=== PATIENT | male | born 1935 | race Caucasian/White ===

== ENCOUNTER → 2016-06-17 | Outpatient (REF) | payer MEDICARE ==
[2016-06-17 12:16] LABS: BASO % 0.5 % (0.0-1.0); EOS # 0.3 K/mm3 (0.0-0.50); EOS % 3.7 % (0.0-3.0); LARGE UNSTAINED CELL # 0.1 K/mm3 (0.0-0.4); LARGE UNSTAINED CELL % 1.1 % (0.0-4.0); LYMPH # 1.2 K/mm3 (1.5-4.5); LYMPH % 14.5 % (24.0-44.0); MEAN CORPUSCULAR HEMOGLOBIN 32.2 pg (27.0-33.0); MEAN CORPUSCULAR HGB CONC 33.4 g/dl (32.0-36.5); MEAN CORPUSCULAR VOLUME 96.3 fl (80.0-96.0); MONO # 0.6 K/mm3 (0.0-0.8); MONO % 7.3 % (0.0-5.0); NEUTROPHILS # 5.6 K/mm3 (1.8-7.7); NEUTROPHILS % 72.9 % (36.0-66.0); PLATELET COUNT, AUTOMATED 280 k/mm3 (150-450); RED CELL DISTRIBUTION WIDTH 12.1 % (11.5-14.5); WHITE BLOOD COUNT 7.7 K/mm3 (4.0-10.0)
[2016-06-17 12:33] LABS: ALBUMIN 3.6 GM/DL (3.2-5.2); ALBUMIN/GLOBULIN RATIO 1.2 (1.00-1.93); BILIRUBIN,TOTAL 0.3 MG/DL (0.2-1.0); CALCIUM LEVEL 9.5 MG/DL (8.8-10.2); CARBAMAZEPINE (TEGRETOL) LEVEL 9.5 UG/ML (4.0-10.0); CREATININE FOR GFR 3.32 MG/DL (0.70-1.30); GLOMERULAR FILTRATION RATE 19.3 (>42); PERCENT SATURATION 45.9 % (19.7-37.4); POTASSIUM SERUM 4.3 MEQ/L (3.5-5.1); TOTAL PROTEIN 6.6 GM/DL (6.4-8.2)
== END ==
LOC: M SFHCPLAZ 07:55
PROVIDERS: ATTEND Family Medicine
DX: G40.909 Epilepsy, unspecified, not intractable, without status epilepticus (principal); I12.9 Hypertensive chronic kidney disease with stage 1 through stage 4 chronic kidney disease, or unspecified chronic kidney disease; N40.1 Benign prostatic hyperplasia with lower urinary tract symptoms; N18.4 Chronic kidney disease, stage 4 (severe); Z79.899 Other long term (current) drug therapy
CPT/HCPCS: 36415; 80053; 80156; 82728; 83036; 83550; 83970; 85025; G0103

== ENCOUNTER → 2016-10-28 | Outpatient (CLI) | payer MEDICARE ==
--- NOTE | 2016-10-28 14:03 | REP ---
MRI RIGHT SHOULDER WITHOUT CONTRAST: HISTORY: Right shoulder pain. No comparison radiographs. TECHNIQUE: Axial, oblique coronal, and oblique sagittal imaging planes utilized. T1 and T2-weighted scans were obtained in the usual fashion. MRI FINDINGS: There is advanced glenohumeral and mild to moderate acromioclavicular joint osteoarthritis. Well established spurring is seen along the margins of the humeral head inferiorly and to a lesser extent laterally and along the articular margins of the glenoid. There is complete articular cartilage loss across the glenoid and a large area of the humeral head. Some subcortical sclerosis is seen. There is a large glenohumeral joint effusion. There is no evidence of supraspinatus cuff tear. The biceps tendon appears intact. The biceps tendon sheath is quite distended with septated fluid. On axial T2-weighted scans, there is granular material in the posterior aspect of the glenohumeral joint fluid. There is degeneration in the superior cartilaginous labrum. The anterior and posterior labral cartilages are deficient particularly anterior. The infraspinatus and subscapularis tendons appear intact. 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 This contains granular material which may be tiny osteocartilaginous loose bodies. There is significant articular cartilage loss. Degeneration of the anterior and superior labral cartilage. No definite rotator cuff tear. The biceps tendon sheath is distended with joint fluid. Signed by Cole Trevino MD 10/28/2016 04:32 P
== END ==
LOC: M RAD 12:16
PROVIDERS: ATTEND Physician Assistant Medical
DX: M19.011 Primary osteoarthritis, right shoulder (principal); M25.411 Effusion, right shoulder

== ENCOUNTER → 2016-11-01 | Outpatient (REF) | payer MEDICARE ==
[2016-11-01 13:09] LABS: BASO # 0.1 K/mm3 (0.0-0.2); BASO % 0.7 % (0.0-1.0); EOS # 0.2 K/mm3 (0.0-0.50); EOS % 2.4 % (0.0-3.0); LARGE UNSTAINED CELL # 0.1 K/mm3 (0.0-0.4); LYMPH # 1.4 K/mm3 (1.5-4.5); LYMPH % 16.4 % (24.0-44.0); MEAN CORPUSCULAR HEMOGLOBIN 32.4 pg (27.0-33.0); MEAN CORPUSCULAR HGB CONC 32.8 g/dl (32.0-36.5); MONO # 0.5 K/mm3 (0.0-0.8); MONO % 6.6 % (0.0-5.0); NEUTROPHILS # 5.7 K/mm3 (1.8-7.7); NEUTROPHILS % 72.9 % (36.0-66.0); PLATELET COUNT, AUTOMATED 280 k/mm3 (150-450); RED CELL DISTRIBUTION WIDTH 12.8 % (11.5-14.5); WHITE BLOOD COUNT 7.8 K/mm3 (4.0-10.0)
[2016-11-01 13:37] LABS: ALBUMIN 3.5 GM/DL (3.2-5.2); ALBUMIN/GLOBULIN RATIO 1.21 (1.00-1.93); BILIRUBIN,TOTAL 0.3 MG/DL (0.2-1.0); CARBAMAZEPINE (TEGRETOL) LEVEL 9.3 UG/ML (4.0-10.0); CREATININE FOR GFR 3.1 MG/DL (0.70-1.30); FREE T4 0.98 NG/DL (0.76-1.46); GLOMERULAR FILTRATION RATE 20.8 (>42); MAGNESIUM LEVEL 2.6 MG/DL (1.8-2.4); POTASSIUM SERUM 4.3 MEQ/L (3.5-5.1); TOTAL PROTEIN 6.4 GM/DL (6.4-8.2)
== END ==
LOC: M SFHCPLAZ 07:46
PROVIDERS: ATTEND Family Medicine
DX: G40.909 Epilepsy, unspecified, not intractable, without status epilepticus (principal); E78.5 Hyperlipidemia, unspecified; N18.4 Chronic kidney disease, stage 4 (severe); E03.9 Hypothyroidism, unspecified; E55.9 Vitamin D deficiency, unspecified

== ENCOUNTER → 2017-02-15 | Outpatient (REF) | payer MEDICARE ==
[2017-02-15 11:04] LABS: BASO % 0.5 % (0.0-1.0); EOS # 0.2 10^3/uL (0.0-0.50); IMMATURE GRANULOCYTE # 0.1 10^3/uL (0-0); IMMATURE GRANULOCYTE % 0.7 % (0-0); LYMPH # 1.3 10^3/uL (1.5-4.5); LYMPH % 14.8 % (24.0-44.0); MEAN CORPUSCULAR HEMOGLOBIN 32.6 pg (27.0-33.0); MEAN CORPUSCULAR HGB CONC 33.9 g/dl (32.0-36.5); MEAN CORPUSCULAR VOLUME 96.2 fl (80.0-96.0); MONO # 0.8 10^3/uL (0.0-0.8); MONO % 9.5 % (0.0-5.0); NEUTROPHILS # 6.3 10^3/uL (1.8-7.7); NEUTROPHILS % 72.5 % (36.0-66.0); PLATELET COUNT, AUTOMATED 277 10^3/uL (150-450); WHITE BLOOD COUNT 8.7 10^3/uL (4.0-10.0)
[2017-02-15 11:21] LABS: ALBUMIN 3.6 GM/DL (3.2-5.2); ALKALINE PHOSPHATASE 62 U/L (45-117); ALT/SGPT 19 U/L (12-78); ANION GAP 10 MEQ/L (8-16); AST/SGOT 12 U/L (7-37); BILIRUBIN,TOTAL 0.4 MG/DL (0.2-1.0); BLOOD UREA NITROGEN 46 MG/DL (7-18); CARBAMAZEPINE (TEGRETOL) LEVEL 8.8 UG/ML (4.0-10.0); CARBON DIOXIDE LEVEL 27 MEQ/L (21-32); CHLORIDE LEVEL 102 MEQ/L (98-107); CREATININE FOR GFR 3.03 MG/DL (0.70-1.30); GLOMERULAR FILTRATION RATE 21.4 (>42); GLUCOSE, FASTING 112 MG/DL (83-110); POTASSIUM SERUM 3.9 MEQ/L (3.5-5.1); PSA SCREENING 2.28 NG/ML (< 4.0); SODIUM LEVEL 139 MEQ/L (136-145); TOTAL PROTEIN 6.6 GM/DL (6.4-8.2)
[2017-02-15 11:25] LABS: ESTIMATED AVERAGE GLUCOSE 111 MG/DL (60-110)
[2017-02-16 12:43] LABS: ALBUMIN % 58.3 % (55.8-66.1); GAMMA GLOBULIN % 13.1 % (11.1-18.8)
[2017-02-16 12:45] LABS: ALBUMIN 3.85 GM/DL (3.29-5.55)
[2017-02-17 11:08] LABS: PRETREATED FOLATE FOR RBCFOL 7.9 NG/ML
== END ==
LOC: M SFHCPLAZ 08:16
DX: G40.909 Epilepsy, unspecified, not intractable, without status epilepticus (principal); R73.01 Impaired fasting glucose; N40.1 Benign prostatic hyperplasia with lower urinary tract symptoms; N18.4 Chronic kidney disease, stage 4 (severe); Z23 Encounter for immunization
CPT/HCPCS: 84165

== ENCOUNTER → 2017-06-30 | Outpatient (REF) | payer MEDICARE ==
[2017-06-30 16:03] LABS: BASO # 0.1 10^3/uL (0.0-0.2); BASO % 0.6 % (0.0-1.0); EOS # 0.2 10^3/uL (0.0-0.50); EOS % 2.3 % (0.0-3.0); HEMOGLOBIN 13.5 g/dl (14.0-18.0); IMMATURE GRANULOCYTE % 0.5 % (0-3.0); LYMPH # 1.5 10^3/uL (1.5-4.5); LYMPH % 14.4 % (24.0-44.0); MEAN CORPUSCULAR HEMOGLOBIN 31.3 pg (27.0-33.0); MEAN CORPUSCULAR HGB CONC 32.9 g/dl (32.0-36.5); MEAN CORPUSCULAR VOLUME 95.1 fl (80.0-96.0); MONO # 0.8 10^3/uL (0.0-0.8); MONO % 7.6 % (0.0-5.0); NEUTROPHILS # 7.6 10^3/uL (1.8-7.7); NEUTROPHILS % 74.6 % (36.0-66.0); PLATELET COUNT, AUTOMATED 291 10^3/uL (150-450); RED BLOOD COUNT 4.31 10^6/uL (4.30-6.10); WHITE BLOOD COUNT 10.1 10^3/uL (4.0-10.0)
[2017-06-30 16:24] LABS: ESTIMATED AVERAGE GLUCOSE 100 MG/DL (60-110); HEMOGLOBIN A1c 5.1 %
[2017-06-30 16:25] LABS: PTH INTACT 133.4 PG/ML (18.5-88.0)
[2017-06-30 16:42] LABS: ALBUMIN 3.9 GM/DL (3.2-5.2); ALBUMIN/GLOBULIN RATIO 1.18 (1.00-1.93); ALKALINE PHOSPHATASE 88 U/L (45-117); ALT/SGPT 20 U/L (12-78); ANION GAP 9 MEQ/L (8-16); AST/SGOT 12 U/L (7-37); BILIRUBIN,TOTAL 0.4 MG/DL (0.2-1.0); BLOOD UREA NITROGEN 45 MG/DL (7-18); CALCIUM LEVEL 9.3 MG/DL (8.8-10.2); CARBAMAZEPINE (TEGRETOL) LEVEL 10.1 UG/ML (4.0-10.0); CARBON DIOXIDE LEVEL 25 MEQ/L (21-32); CHLORIDE LEVEL 105 MEQ/L (98-107); CREATININE FOR GFR 3.14 MG/DL (0.70-1.30); FREE T4 0.93 NG/DL (0.76-1.46); GLOMERULAR FILTRATION RATE 20.5 (>42); GLUCOSE, FASTING 102 MG/DL (70-100); POTASSIUM SERUM 4.6 MEQ/L (3.5-5.1); SODIUM LEVEL 139 MEQ/L (136-145); TOTAL PROTEIN 7.2 GM/DL (6.4-8.2)
== END ==
LOC: M SFHCPLAZ 11:51
DX: N18.4 Chronic kidney disease, stage 4 (severe) (principal); E03.9 Hypothyroidism, unspecified; R73.01 Impaired fasting glucose; E55.9 Vitamin D deficiency, unspecified; G40.909 Epilepsy, unspecified, not intractable, without status epilepticus
CPT/HCPCS: 84443

== ENCOUNTER → 2017-10-05 | Outpatient (REF) | payer MEDICARE ==
[2017-10-05 16:29] LABS: BASO # 0.1 10^3/uL (0.0-0.2); BASO % 0.6 % (0.0-1.0); EOS # 0.2 10^3/uL (0.0-0.50); EOS % 1.7 % (0.0-3.0); HEMATOCRIT 41.1 % (42.0-52.0); HEMOGLOBIN 13.8 g/dl (13.5-17.5); IMMATURE GRANULOCYTE % 0.6 % (0-3.0); LYMPH # 1.4 10^3/uL (1.5-4.5); LYMPH % 15.5 % (24.0-44.0); MEAN CORPUSCULAR HEMOGLOBIN 32.9 pg (27.0-33.0); MEAN CORPUSCULAR HGB CONC 33.6 g/dl (32.0-36.5); MEAN CORPUSCULAR VOLUME 97.9 fl (80.0-96.0); MONO # 0.6 10^3/uL (0.0-0.8); MONO % 6.7 % (0.0-5.0); NEUTROPHILS # 6.8 10^3/uL (1.8-7.7); NEUTROPHILS % 74.9 % (36.0-66.0); PLATELET COUNT, AUTOMATED 256 10^3/uL (150-450); RED CELL DISTRIBUTION WIDTH 12.4 % (11.5-14.5); RETIC HEMOGLOBIN EQUIVALENT 38.6 pg (24-36); RETICULOCYTE # 57.1 10^9/L (17-77); RETICULOCYTE % 1.4 % (0.5-1.5)
[2017-10-05 16:44] LABS: ALBUMIN 3.5 GM/DL (3.2-5.2); ALKALINE PHOSPHATASE 81 U/L (45-117); ALT/SGPT 22 U/L (12-78); ANION GAP 9 MEQ/L (8-16); AST/SGOT 12 U/L (7-37); BILIRUBIN,TOTAL 0.4 MG/DL (0.2-1.0); BLOOD UREA NITROGEN 34 MG/DL (7-18); C REACTIVE PROTEIN QUANTITATIV 0.59 MG/DL (0.00-0.30); CARBAMAZEPINE (TEGRETOL) LEVEL 10.3 UG/ML (4.0-10.0); CARBON DIOXIDE LEVEL 25 MEQ/L (21-32); CHLORIDE LEVEL 107 MEQ/L (98-107); CHOLESTEROL LEVEL 150 MG/DL (<200); CHOLESTEROL RISK RATIO 2.542 (<5); CPK CREATINE PHOSPHOKINASE 36 U/L (39-308); CREATININE FOR GFR 2.81 MG/DL (0.70-1.30); GLOMERULAR FILTRATION RATE 23.3 (>42); GLUCOSE, FASTING 96 MG/DL (70-100); HDL CHOLESTEROL 59 MG/DL (>40); LDL CHOLESTEROL 69.6 MG/DL (<100); MAGNESIUM LEVEL 2.5 MG/DL (1.8-2.4); NON-HDL-C 91 MG/DL; POTASSIUM SERUM 4.8 MEQ/L (3.5-5.1); PROSTATIC SPECIFIC AG MONITOR 2.18 NG/ML (< 4.0); SODIUM LEVEL 141 MEQ/L (136-145); TRIGLYCERIDES LEVEL 107 MG/DL (<150)
[2017-10-06 08:38] LABS: VITAMIN B12 LEVEL 450 PG/ML (247-911)
== END ==
LOC: M SFHCPLAZ 12:32
DX: N40.1 Benign prostatic hyperplasia with lower urinary tract symptoms (principal); G40.909 Epilepsy, unspecified, not intractable, without status epilepticus; D75.89 Other specified diseases of blood and blood-forming organs; N18.4 Chronic kidney disease, stage 4 (severe); E78.5 Hyperlipidemia, unspecified
CPT/HCPCS: 82550

== ENCOUNTER → 2018-01-23 | Outpatient (REF) | payer MEDICARE ==
[2018-01-23 15:32] LABS: BASO # 0.1 10^3/uL (0.0-0.2); BASO % 0.6 % (0.0-1.0); EOS # 0.1 10^3/uL (0.0-0.50); EOS % 1.2 % (0.0-3.0); HEMATOCRIT 41.9 % (42.0-52.0); HEMOGLOBIN 14.1 g/dl (13.5-17.5); IMMATURE GRANULOCYTE % 0.6 % (0-3.0); LYMPH # 1.1 10^3/uL (1.5-4.5); LYMPH % 13.1 % (24.0-44.0); MEAN CORPUSCULAR HEMOGLOBIN 32.8 pg (27.0-33.0); MEAN CORPUSCULAR HGB CONC 33.7 g/dl (32.0-36.5); MEAN CORPUSCULAR VOLUME 97.4 fl (80.0-96.0); MONO # 0.7 10^3/uL (0.0-0.8); NEUTROPHILS # 6.3 10^3/uL (1.8-7.7); NEUTROPHILS % 76.5 % (36.0-66.0); PLATELET COUNT, AUTOMATED 297 10^3/uL (150-450); WHITE BLOOD COUNT 8.3 10^3/uL (4.0-10.0)
[2018-01-23 15:53] LABS: ESTIMATED AVERAGE GLUCOSE 117 MG/DL (60-110); HEMOGLOBIN A1c 5.7 %
[2018-01-23 16:02] LABS: ALBUMIN/GLOBULIN RATIO 1.11 (1.00-1.93); ALKALINE PHOSPHATASE 83 U/L (45-117); ALT/SGPT 22 U/L (12-78); ANION GAP 10 MEQ/L (8-16); AST/SGOT 14 U/L (7-37); BILIRUBIN,TOTAL 0.3 MG/DL (0.2-1.0); BLOOD UREA NITROGEN 46 MG/DL (7-18); CALCIUM LEVEL 9.5 MG/DL (8.8-10.2); CARBON DIOXIDE LEVEL 26 MEQ/L (21-32); CHLORIDE LEVEL 104 MEQ/L (98-107); CREATININE FOR GFR 3.46 MG/DL (0.70-1.30); DIFF SLIDE NUMBER 28; GLOMERULAR FILTRATION RATE 18.3 (>35); GLUCOSE, FASTING 103 MG/DL (70-100); MAGNESIUM LEVEL 2.5 MG/DL (1.8-2.4); POTASSIUM SERUM 4.4 MEQ/L (3.5-5.1); SODIUM LEVEL 140 MEQ/L (136-145); TOTAL PROTEIN 7.6 GM/DL (6.4-8.2)
[2018-01-23 16:11] LABS: PTH INTACT 95.5 PG/ML (18.5-88.0)
== END ==
LOC: M SFHCPLAZ 13:18
DX: N18.4 Chronic kidney disease, stage 4 (severe) (principal); J44.9 Chronic obstructive pulmonary disease, unspecified; E78.5 Hyperlipidemia, unspecified; E03.9 Hypothyroidism, unspecified; R73.01 Impaired fasting glucose; Z23 Encounter for immunization
CPT/HCPCS: 83735

== ENCOUNTER → 2018-06-07 | Outpatient (REF) | payer MEDICARE ==
[2018-06-07 10:26] LABS: BASO # 0.1 10^3/uL (0.0-0.2); BASO % 0.7 % (0.0-1.0); EOS # 0.3 10^3/uL (0.0-0.50); EOS % 3.2 % (0.0-3.0); HEMATOCRIT 39.2 % (42.0-52.0); HEMOGLOBIN 13.1 g/dl (13.5-17.5); LYMPH # 1.3 10^3/uL (1.5-4.5); LYMPH % 15.6 % (24.0-44.0); MEAN CORPUSCULAR HEMOGLOBIN 32.9 pg (27.0-33.0); MEAN CORPUSCULAR HGB CONC 33.4 g/dl (32.0-36.5); MEAN CORPUSCULAR VOLUME 98.5 fl (80.0-96.0); MONO # 0.9 10^3/uL (0.0-0.8); MONO % 10.5 % (0.0-5.0); NEUTROPHILS % 69.4 % (36.0-66.0); PLATELET COUNT, AUTOMATED 271 10^3/uL (150-450); RED BLOOD COUNT 3.98 10^6/uL (4.30-6.10); WHITE BLOOD COUNT 8.6 10^3/uL (4.0-10.0)
[2018-06-07 11:13] LABS: ALBUMIN 3.5 GM/DL (3.2-5.2); BILIRUBIN,TOTAL 0.3 MG/DL (0.2-1.0); CARBAMAZEPINE (TEGRETOL) LEVEL 11.1 UG/ML (4.0-10.0); CHOLESTEROL RISK RATIO 3.211 (<5); CREATININE FOR GFR 3.36 MG/DL (0.70-1.30); FREE T4 0.96 NG/DL (0.76-1.46); GLOMERULAR FILTRATION RATE 18.9 (>35); POTASSIUM SERUM 4.2 MEQ/L (3.5-5.1); PTH INTACT 100.5 PG/ML (18.5-88.0); THYROID STIMULATING HORMONE 2.79 uIU/ML (0.358-3.740); TOTAL PROTEIN 6.8 GM/DL (6.4-8.2)
== END ==
LOC: M SFHCPLAZ 07:58
PROVIDERS: ATTEND Family Medicine
DX: I10 Essential (primary) hypertension (principal); G40.909 Epilepsy, unspecified, not intractable, without status epilepticus
CPT/HCPCS: 36415; 80053; 80061; 80156; 83970; 84439; 84443; 85025; G0103

== ENCOUNTER → 2018-11-06 | Outpatient (REF) | payer MEDICARE ==
[~2018-11-06] MED LIST: ADV250INH INH; AMLO10TA5 PO; CALC1CAP31 PO; CALC600T6 PO; CARB100T PO; CLON0.2T PO; FURO40TA2 PO; INCR1INH INH; KEFL500C17 PO; KERLMIS12 XX; LEVO25TA5 PO; LOSA25TA14 PO; PANT40TA3 PO; PRAV40TA2 PO; SM F500O TOP; SPIR-10 PO; VERA120T83 PO; VOLT1GEL15 TD; [UNRECOGNIZED DRUG - CODE] XX
[2018-11-06 11:42] LABS: BASO # 0.1 10^3/uL (0.0-0.2); BASO % 0.8 % (0.0-1.0); EOS # 0.2 10^3/uL (0.0-0.50); EOS % 2.1 % (0.0-3.0); HEMATOCRIT 40.1 % (42.0-52.0); HEMOGLOBIN 13.6 g/dl (13.5-17.5); LYMPH # 1.2 10^3/uL (1.5-4.5); LYMPH % 11.5 % (24.0-44.0); MEAN CORPUSCULAR HEMOGLOBIN 32.9 pg (27.0-33.0); MEAN CORPUSCULAR HGB CONC 33.9 g/dl (32.0-36.5); MEAN CORPUSCULAR VOLUME 97.1 fl (80.0-96.0); MONO # 1.1 10^3/uL (0.0-0.8); MONO % 10.6 % (0.0-5.0); NEUTROPHILS # 7.7 10^3/uL (1.8-7.7); NEUTROPHILS % 74.3 % (36.0-66.0); PLATELET COUNT, AUTOMATED 295 10^3/uL (150-450); RED BLOOD COUNT 4.13 10^6/uL (4.30-6.10); WHITE BLOOD COUNT 10.3 10^3/uL (4.0-10.0)
[2018-11-06 12:19] LABS: ALBUMIN 3.9 GM/DL (3.2-5.2); BILIRUBIN,TOTAL 0.3 MG/DL (0.2-1.0); CALCIUM LEVEL 9.9 MG/DL (8.8-10.2); CARBAMAZEPINE (TEGRETOL) LEVEL 7.8 UG/ML (4.0-10.0); CREATININE FOR GFR 3.71 MG/DL (0.70-1.30); GLOMERULAR FILTRATION RATE 16.9 (>35); POTASSIUM SERUM 4.2 MEQ/L (3.5-5.1); TOTAL PROTEIN 7.7 GM/DL (6.4-8.2)
[2018-11-06 12:20] LABS: PTH INTACT 109.5 PG/ML (18.5-88.0)
== END ==
LOC: M SFHCPLAZ 09:46
PROVIDERS: ATTEND Family Medicine
DX: D75.89 Other specified diseases of blood and blood-forming organs (principal); G40.909 Epilepsy, unspecified, not intractable, without status epilepticus; R73.01 Impaired fasting glucose; E55.9 Vitamin D deficiency, unspecified; N18.4 Chronic kidney disease, stage 4 (severe)
CPT/HCPCS: 36415; 80053; 80156; 82607; 82728; 83036; 83970; 85025; 85046; 90715; G0463

== ENCOUNTER 2018-11-23 12:18 | Emergency (ER) | payer MEDICARE ==
[2018-11-23] MEDS ORDERED: VERA120T83 PO (13:04)
[2018-11-23] MEDS ORDERED: CLON0.2T PO (13:04)
[2018-11-23] MEDS ORDERED: PANT40TA3 PO (13:04)
[2018-11-23] MEDS ORDERED: VOLT1GEL15 TD (13:04)
[2018-11-23] MEDS ORDERED: AMLO10TA5 PO (13:04)
[2018-11-23] MEDS ORDERED: SPIR-10 PO (13:04)
[2018-11-23] MEDS ORDERED: LOSA25TA14 PO (13:04)
[2018-11-23] MEDS ORDERED: CARB100T PO (13:04)
[2018-11-23] MEDS ORDERED: CALC1CAP31 PO (13:04)
[2018-11-23] MEDS ORDERED: INCR1INH INH (13:04)
[2018-11-23] MEDS ORDERED: LEVO25TA5 PO (13:04)
[2018-11-23] MEDS ORDERED: ADV250INH INH (13:04)
[2018-11-23] MEDS ORDERED: FURO40TA2 PO (13:04)
[2018-11-23] MEDS ORDERED: PRAV40TA2 PO (13:04)
[2018-11-23] MEDS ORDERED: CALC600T6 PO (13:04)
[2018-11-23] MEDS ORDERED: LIDOCAINE W/EPINEPHRINE 1% 20ML VIAL SC ONE (13:30)
[2018-11-23] MEDS ORDERED: MORPHINE 2 MG/ML 1ML SYRINGE (J2270) IV PRN (15:30)
[2018-11-23] MEDS ORDERED: MORPHINE 2 MG/ML 1ML SYRINGE (J2270) As Ordered ONE (15:34)
--- NOTE | 2018-11-23 15:54 | REP ---
REASON: Fall Two limited views were obtained. A fracture cannot be ruled out. A trauma series consists of four views. There is no lateral view on this limited two-view examination. There is an AP and some sort of view that is between a lateral and an oblique. Air densities are seen in the soft tissues laterally of uncertain etiology. Infection cannot be ruled out. This needs to be correlated clinically. There is a lucency seen involving the superior tip of the posterior ulna. That could represent a fracture. It might not or it could be chronic. IMPRESSION: 1. The exam is limited. I cannot rule out a fracture. There could be a fracture as described above. 2. Soft tissue abnormalities. An infection cannot be ruled out. Correlate clinically. Electronically Signed by Castillo Lockett DO 11/23/2018 04:03 P
--- NOTE | 2018-11-23 15:54 | REP ---
REASON: Pain after trauma. Not all of the ulna was imaged on this exam. See the elbow report. No gross fractures are seen on this exam. Air densities are seen in the soft tissues. I cannot rule out infection. That would need to be correlated clinically. IMPRESSION: No gross fracture excluded the proximal ulna which was not imaged on both views. Electronically Signed by Castillo Lockett DO 11/23/2018 04:04 P
[2018-11-23] MEDS ORDERED: HYDROMORPHONE HCL 0.5 MG/ 0.5 ML SYRINGE (J1170 PER 1) As Ordered ONE (16:11)
[2018-11-23] MEDS ORDERED: HYDROMORPHONE HCL 0.5 MG/ 0.5 ML SYRINGE (J1170 PER 1) IV ONE (16:15)
[2018-11-23] MEDS ORDERED: NEOSPORIN OINT 0.9 GM PKT (FLOOR STOCK) TOP ONE (17:30)
[2018-11-23] MEDS ORDERED: ceFAZolin SOD 1 GM in D5W MINI-BAG PLUS 50 ML IV ONE (17:45)
[2018-11-23] MEDS ORDERED: [UNRECOGNIZED DRUG - CODE] XX (17:54)
[2018-11-23] MEDS ORDERED: SM F500O TOP (17:54)
[2018-11-23] MEDS ORDERED: KERLMIS12 XX (17:54)
[2018-11-23] MEDS ORDERED: KEFL500C17 PO (18:34)
[2018-11-23 19:22] VITALS: BP 198/100
--- NOTE | 2018-11-25 21:10 | ED PDOC ---
Post-Departure Follow-Up dr wayne faxed formal report of right elbow for fu Peg Barreto MD Nov 25, 2018 21:10
== END 2018-11-23 19:25 | disposition home or self-care (01) ==
LOC: M ED 12:18
DX: N18.4 Chronic kidney disease, stage 4 (severe) (principal); S41.111A Laceration without foreign body of right upper arm, initial encounter; X58.XXXA Exposure to other specified factors, initial encounter; Y92.89 Other specified places as the place of occurrence of the external cause; I12.9 Hypertensive chronic kidney disease with stage 1 through stage 4 chronic kidney disease, or unspecified chronic kidney disease; I50.9 Heart failure, unspecified; J44.9 Chronic obstructive pulmonary disease, unspecified; G40.909 Epilepsy, unspecified, not intractable, without status epilepticus; Z79.899 Other long term (current) drug therapy; Z79.82 Long term (current) use of aspirin; Z91.040 Latex allergy status; Z87.891 Personal history of nicotine dependence
CPT/HCPCS: 73070; 73090; 80047; 96365; 96375; 99285; J0690; J1170; J2270

== ENCOUNTER → 2018-12-18 | Outpatient (REF) | payer MEDICARE ==
[2018-12-18 13:22] LABS: BASO # 0.1 10^3/uL (0.0-0.2); BASO % 0.8 % (0.0-1.0); EOS # 0.2 10^3/uL (0.0-0.5); EOS % 2.8 % (0.0-3.0); HEMOGLOBIN 12.9 g/dl (13.5-17.5); LYMPH # 1.3 10^3/uL (1.5-5.0); LYMPH % 15.1 % (24.0-44.0); MEAN CORPUSCULAR HEMOGLOBIN 31.7 pg (27.0-33.0); MEAN CORPUSCULAR HGB CONC 33.1 g/dl (32.0-36.5); MEAN CORPUSCULAR VOLUME 95.8 fl (80.0-96.0); MONO # 0.9 10^3/uL (0.0-0.8); MONO % 10.3 % (0.0-5.0); NEUTROPHILS # 5.8 10^3/uL (1.5-8.5); NEUTROPHILS % 70.3 % (36.0-66.0); PLATELET COUNT, AUTOMATED 317 10^3/uL (150-450); RED BLOOD COUNT 4.07 10^6/uL (4.30-6.10); WHITE BLOOD COUNT 8.3 10^3/uL (4.0-10.0)
[2018-12-18 13:35] LABS: ALBUMIN 3.7 GM/DL (3.2-5.2); BILIRUBIN,TOTAL 0.4 MG/DL (0.2-1.0); CALCIUM LEVEL 9.9 MG/DL (8.8-10.2); CREATININE FOR GFR 3.61 MG/DL (0.70-1.30); GLOMERULAR FILTRATION RATE 17.4 (>35); POTASSIUM SERUM 4.1 MEQ/L (3.5-5.1); TOTAL PROTEIN 7.7 GM/DL (6.4-8.2)
== END ==
LOC: M SFHCPLAZ 09:56
PROVIDERS: ATTEND Family Medicine
DX: I11.0 Hypertensive heart disease with heart failure (principal); I50.32 Chronic diastolic (congestive) heart failure
CPT/HCPCS: 36415; 80053; 83880; 85025; G0463

== ENCOUNTER → 2018-12-31 | Outpatient (REF) | payer MEDICARE ==
[2018-12-31 13:43] LABS: ALBUMIN 3.9 GM/DL (3.2-5.2); CALCIUM LEVEL 9.8 MG/DL (8.8-10.2); CREATININE FOR GFR 4.22 MG/DL (0.70-1.30); FREE T4 1.12 NG/DL (0.76-1.46); GLOMERULAR FILTRATION RATE 14.5 (>35); MAGNESIUM LEVEL 2.7 MG/DL (1.8-2.4); PHOSPHORUS LEVEL 3.7 MG/DL (2.5-4.9); POTASSIUM SERUM 3.9 MEQ/L (3.5-5.1); PTH INTACT 114.3 PG/ML (18.5-88.0); THYROID STIMULATING HORMONE 3.69 uIU/ML (0.358-3.740)
== END ==
LOC: M SFHCPLAZ 11:00
PROVIDERS: ATTEND Family Medicine
DX: I13.0 Hypertensive heart and chronic kidney disease with heart failure and stage 1 through stage 4 chronic kidney disease, or unspecified chronic kidney disease (principal); E03.9 Hypothyroidism, unspecified; N18.4 Chronic kidney disease, stage 4 (severe); I50.32 Chronic diastolic (congestive) heart failure
CPT/HCPCS: 36415; 80069; 83735; 83880; 83970; 84439; 84443; G0463

== ENCOUNTER → 2019-01-01 | Outpatient (CLI) | payer MEDICARE ==
--- NOTE | 2019-01-01 15:06 | REP ---
RENAL SONOGRAPHY: HISTORY: Chronic kidney disease stage IV. FINDINGS: Renal cortical echogenicity pattern is increased consistent with chronic medical renal disease. There is no evidence of hydronephrosis on either side. Multiple renal cortical cysts are observed bilaterally. On the right there are cysts measuring 2.5, 5.0, and 3.8 cm in greatest diameter respectively. On the left the largest cyst measures 6.8 cm x 4.8 x 6.2 cm. This is in the upper pole. The left kidney also shows two others simple cyst measuring 2.9 and 3.6 cm in greatest diameter. Left renal dimensions are 10.0 x 6.7 x 5.3 cm. Right kidney measures 12.3 x 5.1 x 4.5 cm. Findings are similar to prior sonography June 14, 2013. IMPRESSION: Increased renal cortical echogenicity pattern consistent with chronic medical renal disease. No hydronephrosis is seen. Bilateral renal cortical cysts. Electronically Signed by Cole Trevino MD 01/01/2019 04:08 P
--- NOTE | 2019-01-01 15:07 | REP ---
LIMITED PELVIC BLADDER SONOGRAPHY: HISTORY: Chronic kidney disease stage IV. Severely decreased GFR. FINDINGS: Emptying ureteral jets are confirmed from both ureters on color Doppler interrogation of the bladder lumen. Visualized bladder kim are smooth. Pre-void bladder volume is calculated at 256 mL and postvoid bladder volume is 30 mL , 12% post-void residual. Imp: No significant abnormality. Electronically Signed by Cole Trevino MD 01/01/2019 04:08 P
== END ==
LOC: M RAD 10:45
PROVIDERS: ATTEND Family Medicine
DX: N18.4 Chronic kidney disease, stage 4 (severe) (principal)

== ENCOUNTER → 2019-01-04 | Outpatient (REF) | payer MEDICARE ==
[2019-01-04 19:04] LABS: CALCIUM LEVEL 9.8 MG/DL (8.8-10.2); CREATININE FOR GFR 3.86 MG/DL (0.70-1.30); GLOMERULAR FILTRATION RATE 16.1 (>35); PHOSPHORUS LEVEL 3.6 MG/DL (2.5-4.9); POTASSIUM SERUM 3.9 MEQ/L (3.5-5.1)
== END ==
LOC: M SFHCPLAZ 14:07
PROVIDERS: ATTEND Family Medicine
DX: I11.0 Hypertensive heart disease with heart failure (principal); I50.32 Chronic diastolic (congestive) heart failure
CPT/HCPCS: 36415; 80069; 83880; G0463

== ENCOUNTER → 2019-01-11 | Outpatient (REF) | payer MEDICARE ==
[2019-01-11 15:39] LABS: ALBUMIN 3.9 GM/DL (3.2-5.2); CALCIUM LEVEL 9.8 MG/DL (8.8-10.2); CREATININE FOR GFR 3.48 MG/DL (0.70-1.30); GLOMERULAR FILTRATION RATE 18.1 (>35); MAGNESIUM LEVEL 2.6 MG/DL (1.8-2.4); PHOSPHORUS LEVEL 3.6 MG/DL (2.5-4.9); POTASSIUM SERUM 3.8 MEQ/L (3.5-5.1)
== END ==
LOC: M SFHCPLAZ 13:51
PROVIDERS: ATTEND Family Medicine
DX: I11.0 Hypertensive heart disease with heart failure (principal); I50.32 Chronic diastolic (congestive) heart failure
CPT/HCPCS: 36415; 80069; 83735; 83880; G0463

== ENCOUNTER → 2019-01-18 | Outpatient (REF) | payer MEDICARE ==
[~2019-01-18] MED LIST changes: +ALBU83IN INH; +ASPI81TA85 PO; +D3 H2000 PO; +HYDR10TAB PO; +LACT10SO PO; +MIRA0.254 PO; +MIRT1TAB15 PO; +NITR0.4S14 SL; +NORC1TAB7 PO; +PATIENT COMMENTS; +TORS100T PO; +TUMS1000 PO; +VENTAER INH; -VOLT1GEL15 TD; +VOLT1GEL15 TOP
[2019-01-18 14:24] LABS: BASO # 0.1 10^3/uL (0.0-0.2); BASO % 0.9 % (0.0-1.0); EOS # 0.2 10^3/uL (0.0-0.5); EOS % 2.2 % (0.0-3.0); HEMATOCRIT 41.3 % (42.0-52.0); HEMOGLOBIN 13.6 g/dl (13.5-17.5); LYMPH # 1.8 10^3/uL (1.5-5.0); LYMPH % 17.5 % (24.0-44.0); MEAN CORPUSCULAR HEMOGLOBIN 30.8 pg (27.0-33.0); MEAN CORPUSCULAR HGB CONC 32.9 g/dl (32.0-36.5); MEAN CORPUSCULAR VOLUME 93.7 fl (80.0-96.0); MONO # 1.1 10^3/uL (0.0-0.8); MONO % 10.6 % (0.0-5.0); NEUTROPHILS % 67.9 % (36.0-66.0); PLATELET COUNT, AUTOMATED 328 10^3/uL (150-450); RED BLOOD COUNT 4.41 10^6/uL (4.30-6.10); WHITE BLOOD COUNT 10.3 10^3/uL (4.0-10.0)
[2019-01-18 14:47] LABS: ALBUMIN 3.7 GM/DL (3.2-5.2); CALCIUM LEVEL 10.2 MG/DL (8.8-10.2); CREATININE FOR GFR 3.49 MG/DL (0.70-1.30); PHOSPHORUS LEVEL 4.2 MG/DL (2.5-4.9); POTASSIUM SERUM 4.1 MEQ/L (3.5-5.1)
== END ==
LOC: M SFHCPLAZ 13:24
PROVIDERS: ATTEND Family Medicine
DX: I11.0 Hypertensive heart disease with heart failure (principal); G40.909 Epilepsy, unspecified, not intractable, without status epilepticus; I50.32 Chronic diastolic (congestive) heart failure
CPT/HCPCS: 36415; 80069; 80156; 83880; 85025; G0463

== ENCOUNTER → 2019-01-21 | Outpatient (REF) | payer MEDICARE ==
[~2019-01-21] MED LIST changes: -ALBU83IN INH; -ASPI81TA85 PO; -D3 H2000 PO; -HYDR10TAB PO; -LACT10SO PO; -MIRA0.254 PO; -MIRT1TAB15 PO; -NITR0.4S14 SL; -NORC1TAB7 PO; -PATIENT COMMENTS; -TORS100T PO; -TUMS1000 PO; -VENTAER INH; +VOLT1GEL15 TD; -VOLT1GEL15 TOP
[2019-01-21 17:33] LABS: ALBUMIN 3.5 GM/DL (3.2-5.2); CALCIUM LEVEL 9.2 MG/DL (8.8-10.2); CREATININE FOR GFR 3.5 MG/DL (0.70-1.30); MAGNESIUM LEVEL 2.8 MG/DL (1.8-2.4); PHOSPHORUS LEVEL 3.7 MG/DL (2.5-4.9); POTASSIUM SERUM 3.8 MEQ/L (3.5-5.1)
== END ==
LOC: M SFHCPLAZ 15:32
PROVIDERS: ATTEND Family Medicine
DX: N18.3 Chronic kidney disease, stage 3 (moderate) (principal)

== ENCOUNTER 2019-01-27 18:56 | Inpatient (IN) | payer MEDICARE ==
[~2019-01-27] VITALS: Ht 175.3 cm; Wt 91.8 kg
[~2019-01-27 18:56] MED LIST changes: -VOLT1GEL15 TD; +VOLT1GEL15 TOP
[2019-01-27] MEDS ORDERED: FURO40TA2 PO (19:32)
[2019-01-27] MEDS ORDERED: NITR0.4S14 SL (19:32)
[2019-01-27] MEDS ORDERED: LACT10SO PO (19:35)
[2019-01-27] MEDS ORDERED: NORC1TAB7 PO (19:35)
[2019-01-27] MEDS ORDERED: TORS100T PO (19:35)
[2019-01-27] MEDS ORDERED: HYDR10TAB PO (19:35)
[2019-01-27] MEDS ORDERED: FUROSEMIDE 100 MG/10 ML VIAL (J1940) IV ONE ×2 (20:00→23:15)
[2019-01-27] MEDS ORDERED: cloNIDine 0.2 MG TAB PO ONE (20:00)
[2019-01-27] MEDS ORDERED: IPRATROPIUM 0.5MG/ALBUTEROL 2.5MG INH SOL UD 3ML (DUONEB)(J7620) NEB ONE (20:00)
[2019-01-27] MEDS ORDERED: NITROGLYCERIN 2% OINT 1 GM *U/D* PKT TOP ONE (20:00)
[2019-01-27 20:14] LABS: BASO # 0.1 10^3/uL (0.0-0.2); BASO % 0.4 % (0.0-1.0); EOS # 0.1 10^3/uL (0.0-0.5); EOS % 0.5 % (0.0-3.0); HEMOGLOBIN 13.6 g/dl (13.5-17.5); LYMPH # 1.5 10^3/uL (1.5-5.0); LYMPH % 11.1 % (24.0-44.0); MEAN CORPUSCULAR HEMOGLOBIN 31.3 pg (27.0-33.0); MEAN CORPUSCULAR HGB CONC 34.9 g/dl (32.0-36.5); MEAN CORPUSCULAR VOLUME 89.9 fl (80.0-96.0); MONO # 1.4 10^3/uL (0.0-0.8); MONO % 10.8 % (0.0-5.0); NEUTROPHILS # 10.1 10^3/uL (1.5-8.5); NEUTROPHILS % 76.2 % (36.0-66.0); PLATELET COUNT, AUTOMATED 348 10^3/uL (150-450); RED BLOOD COUNT 4.34 10^6/uL (4.30-6.10); WHITE BLOOD COUNT 13.2 10^3/uL (4.0-10.0)
[2019-01-27] MEDS ORDERED: MIRA0.254 PO (20:51)
[2019-01-27] MEDS ORDERED: MIRT1TAB15 PO (20:51)
[2019-01-27] MEDS ORDERED: D3 H2000 PO (20:55)
[2019-01-27] MEDS ORDERED: ALBU83IN INH (20:55)
[2019-01-27] MEDS ORDERED: ASPI81TA85 PO (20:55)
[2019-01-27] MEDS ORDERED: VENTAER INH (20:55)
[2019-01-27] MEDS ORDERED: TUMS1000 PO (20:59)
[2019-01-27] MEDS: amLODIPine 10 MG TAB PO SCH (21:00)
[2019-01-27] MEDS: PRAVASTATIN 20 MG TAB PO SCH (21:00)
[2019-01-27] MEDS: carBAMazepine XR 100 MG TAB PO SCH (21:00)
[2019-01-27] MEDS: MIRTAZAPINE 15 MG TAB PO SCH (21:00)
[2019-01-27] MEDS ORDERED: PATIENT COMMENTS (21:01)
[2019-01-27 21:02] LABS: CALCIUM LEVEL 9.5 MG/DL (8.8-10.2); CK-MB VALUE MASS 1.8 NG/ML (<3.6); CREATININE FOR GFR 4.01 MG/DL (0.70-1.30); GLOMERULAR FILTRATION RATE 15.4 (>35); POTASSIUM SERUM 2.8 MEQ/L (3.5-5.1); TROPONIN I 0.09 NG/ML (< 0.10)
[2019-01-27] MEDS ORDERED: POTASSIUM CHLORIDE 10 MEQ SR TABLET PO ONE (21:15)
[2019-01-27 21:19] LABS: MAGNESIUM LEVEL 2.5 MG/DL (1.8-2.4)
[2019-01-27] MEDS ORDERED: LORazepam 2 MG/ML VIAL (J2060) IV STA (21:36)
[2019-01-27] MEDS ORDERED: ALBUTEROL SULFATE 2.5 MG/0.5 ML INH NEB SOLN INH PRN (23:00)
[2019-01-28] VITALS (11 sets, daily range): BP systolic 145–200; BP diastolic 80–100; PULSE 87
[2019-01-28] MEDS ORDERED: ONDANSETRON 4MG/2ML VIAL (J2405) IV PRN ×3 (01:06→12:00)
[2019-01-28] MEDS ORDERED: NALOXONE INJ 0.4 MG/1 ML VIAL (J2310) IV PRN ×2 (01:06)
[2019-01-28] MEDS ORDERED: diphenhydrAMINE INJ 50MG/ML VIAL (J1200) IV PRN (01:06)
[2019-01-28] MEDS ORDERED: METOCLOPRAMIDE INJ 10MG/2ML VIAL (J2765) IV PRN (01:06)
[2019-01-28] MEDS ORDERED: NALBUPHINE HCL 10 MG/ML AMP (J2300) IV PRN (01:06)
--- NOTE | 2019-01-28 01:13 | HPEPDOC ---
General Date of Admission Jan 27, 2019 at 21:48 Date of Service: Jan 27, 2019 Primary Care Physician: Peter Ortiz M.D. Attending Physician: MONICA SCHUSTER MD Chief Complaint The patient is a 83-year-old male admitted with a reason for visit of Acute Chf. Source: Patient, Family Exam Limitations: No limitations Timing/Duration: Week(s), Getting worse Severity: Severe Associated Symptoms: Shortness of breath, Weakness History of Present Illness 83 yo man with diastolic HF, last TTE in 2013 with EF 65% and LVH with no sign ificant valvular pathology, hypertension, CKD stage 4, PHANI, obesity, epilepsy, DM, hyperlipidemia, BPH, PHANI, COPD who presents to the ED with progressively worsening shortness of breath with inability to ambulate from profound dyspnea on exertion with associated weight gain and lower extremity edema in the setting of stopping all his medications including diuretics2 days prior to presentation, after becoming overwhelmed and frustrated with keeping up with his health while his PCP has been trying to optimize his volume status with ongoing diuretic adjustments. mr. Cevallos lives alone since his 2 years ago and his granddaughter and great grandson are at bedside with him reporting that he has had anxiety and increasing frustration with his health since his . He does however continue to live alone and family checks in on him. Most pertinent to his presentation, Dr. Ortiz his PCP had been titrating his diuretics and antihypertensives as he was noted to be grossly volume overloaded in the office and was recently placed on torsemide 100 BID, aldactone 25 BID, per the outp atient note was started on HCTZ 50 QD, as well as his hydralazine TID, clonidine 0.2 BID and amlodipine 10 QD. Unfortunately Mr. Cevallos stopped taking his medications and comes in grossly volume overloaded, hypoxemic to mid 80s, with 3+ LE edema to the knees, +JVD to midneck, while hypertensive to SBP 240s. Enroute to the ED, EMS administered nitro paste, and in the ED he received clonidine 0.2 and lasix 100mg IV with mild improvement in BP to SBP 190s. He is now being admitted for decompensated heart failure, BP and volume optimization. Of note, initial workup was notable CXR with pulmonary congestion, hypokalemia to 2.8 and Cr 4.01 )from baseline 3s) with a WBC of 13.2, proBNP of 3013, la ctate 2.9 and an EKG with no acute ischemic signs. Home Medications Scheduled Amlodipine Besylate (Amlodipine Besylate) 10 Mg Tablet, 10 MG PO QHS, (Reported) Aspirin (Aspir 81) 81 Mg Tablet.dr, 81 MG PO DAILY, (Reported) Calcitriol (Calcitriol) 0.25 Mcg Capsule, 0.25 MG PO DAILY, (Reported) Calcium Carbonate (Tums Ultra) 400 Mg Tab.chew, 1,000 MG PO DAILY, (Reported) Calcium Carbonate/Vitamin D3 (Calcium 600-Vit D3 400 Tablet) 1 Each Tablet, 1 TAB PO DAILY, (Reported) Carbamazepine (Carbamazepine ER) 100 Mg Tab.er.12h, 100 MG PO TID, (Reported) Cholecalciferol (Vitamin D3) (Vitamin D3) 2,000 Unit Capsule, 2,000 UNIT PO DAILY, (Reported) Clonidine HCl (Clonidine HCl) 0.2 Mg Tablet, 0.2 MG PO BID, (Reported) Diclofenac Sodium (Voltaren) 100 Gm Gel..gram., 2 G TOP QID, (Reported) APPLY TO RIGHT SHOULDER Hydralazine HCl (Hydralazine HCl) 10 Mg Tablet, 20 MG PO TID, (Reported) Lactulose (Lactulose) 10 Gm/15 Ml Solution, 30 ML PO BID, (Reported) Levothyroxine Sodium (Levothyroxine Sodium) 25 Mcg Tablet, 25 MCG PO DAILY, (Reported) Mirtazapine (Mirtazapine) 15 Mg Tab.rapdis, 15 MG PO QHS, (Reported) Nitroglycerin (Nitroglycerin) 0.4 Mg Tab.subl, 0.4 MG SL NITRO, (Reported) Pantoprazole Sodium (Pantoprazole Sodium) 40 Mg Tablet.dr, 40 MG PO DAILY, (Reported) Pramipexole Di-HCl (Mirapex) 0.25 Mg Tablet, 0.25 MG PO DAILY, (Reported) Pravastatin Sodium (Pravastatin Sodium) 40 Mg Tablet, 40 MG PO QHS, (Reported) Salmeterol/Fluticasone (Advair 250-50 Diskus) 1 Each Blst.w.dev, 1 PUFF INH Q12H, (Reported) Spironolactone (Spironolactone) 25 Mg Tablet, 25 MG PO BID, (Reported) Torsemide (Torsemide) 100 Mg Tablet, 100 MG PO BID, (Reported) Umeclidinium [place] (Incruse Ellipta) 62.5 Mcg Blst.w.dev, 1 PUFF INH DAILY, (Reported) Verapamil HCl (Verapamil HCl) 120 Mg Tablet, 120 TAB PO TID, (Reported) Scheduled PRN Albuterol Sulf (Albuterol Sulfate) 2.5 Mg/3 Ml Vial.neb, 1 INHALATION INH Q6H PRN for wheezing, (Reported) Albuterol Sulfate (Ventolin Hfa) 18 Gm Hfa.aer.ad, 2 PUFF INH Q6H PRN for wheezing, (Reported) Hydrocodone/Acetaminophen ([place] 5-325 Tablet) 1 Each Tablet, 1 TAB PO BID PRN for pain, (Reported) Miscellaneous Medications [Patient Comments] , (Reported) MEDICATION LIST PROVIDED BY ANNA. GRANDSON STATES MR.LA PERLA TOLD HIM HE HAS NOT TAKEN ANY MEDICATIONS SINCE MONDAY. GRANDSON COULD NOT VERIFY WHETHER HE TOOK THEM Monday01/25/2019 Allergies Coded Allergies: latex (Verified Allergy, Unknown, 11/23/18) previopusly entered in system pt denies latex allergy on this ed visit Past Medical History Surgical History 1. Status post left inguinal herniorrhaphy. 2. 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 Family History Patients mother and father are both . His mother was known to have hypertension and arthritis. His father had coronary artery disease and hypertension. He also suffered from TIAs. Social History * Smoker: Denies, former Smoker Alcohol: Denies Drugs: denies Recent Travel/Sick Contacts: Denies: Recent travel, Recent sick contacts Psychosocial History: Anxiety Patient lives alone in [place]. His 2 years ago. Since then, per family, he has had significant anxiety about his health and has had issues with medication noncompliance and recently overwhelmed with ongoing progressive diuresis and effort for volume optimization at home. He has a history of smoking between 3-4 packs a day for 40 years, a few years ago. There is no history of alcohol or drug abuse. A-FIB/CHADSVASC A-FIB History Current/History of A-Fib/PAF?: No Current PO Anticoag Therapy: No Age/Risk Factor Scoring CHADSVASC: CHADSVASC Response (Comments) Value Age Risk Factor Age >/= 75 years old 2 Gender Risk Factor Male 0 Hx of CHF Yes 1 Hx of HTN Yes 1 Hx of Stroke/TIA/or VTE No 0 Hx of Diabetes Yes 1 Hx of Vascular Disease Yes 1 Total 6 Treatment Treatment ordered: NONE Reason Anticoagulant not given: Not indicated/[id number] Review of Systems Constitutional: Reports: Weakness, Fatigue, Other (weight gain); Denies: Chills, Fever, Night Sweats, Weight Loss Eyes: Denies: Pain, Vision change ENT: Denies: Head Aches, Ear Pain, Dysphagia Skin: Denies: Rash, Lesions, Breakdown Pulmonary: Reports: Dyspnea, Cough; Denies: Pleuritic Chest Pain Cardiovascular: Reports: Orthopnea, Paroxysmal Noc. Dyspnea, Edema; Denies: Chest Pain, Palpitations, Lt Headedness Gastrointestinal: Denies: Nausea, Vomiting, Abdominal Pain, Diarrhea, Constipation, Melena, Hematochezia Genitourinary: Reports: Other Symptoms (Great grandson reports that he occasionally has very dark foul smelling urine); Denies: Dysuria, Frequency, Incontinence, Retention Hematologic: Denies: Bruising, Bleeding Excessively Endocrine: Denies: Polydipsia, Polyphagia, Polyuria, Heat Intolerance, Cold Intolerance, Other Endocrine Sx Musculoskeletal: Reports: Back Pain, Shoulder Pain (per baseline from a "bad right shoulder") Neurological: Reports: Weakness; Denies: Numbness, Change in speech, Confusion, Seizures Psych: Reports: Anxiety, Depression (family suspects that he may be depressed); Denies: Memory Issues, Thoughts of Self Harm, Thoughts of Harming Other Physical Examination General Exam: Positive: Alert, Cooperative, Mild Distress Eye Exam: Positive: PERRLA, EOMI, Other Eye Symptoms (Enucleated left eye); Negative: Sclera icteric ENT Exam: Positive: Atraumatic, Mucous membr. moist/pink, Pharynx Normal Neck Exam: Positive: Supple, JVD, +2 carotid pulse wo bruit; Negative: thyromegaly, Lymphadenopathy Chest Exam: Positive: Rales (bibasilar posterior lung pettit), Diminished (diminished bases); Negative: Rhonchi, Wheezing Heart Exam: Positive: Rate Normal, Regular Rhythm, Normal S1, Normal S2, Gallops (+S3), Murmurs (2/6 systolic murmur best heard at RUSB) Telemetry: Positive: PVCs Abdomen Exam: Positive: Normal bowel sounds, Soft, Other (obese); Negative: Tenderness, Hepatospenomegaly Extremity Exam: Positive: Edema (3+ to the knees, also has significant depe ndent sacral edema), Normal pulses, Tenderness (bilateral lower extremities on pressing edema); Negative: Clubbing, Cyanosis Skin Exam: Positive: Nl turgor and temperature; Negative: Rash, Breakdown, Lesion, Pruritus Neuro Exam: Positive: Normal Speech, Strength at 5/5 X4 ext, Normal Tone, Sensation Intact, Cranial Nerves 3-12 NL Psych Exam: Positive: Mental status NL, Anxiety, Memory Intact, Oriented x 3 Vital Signs Vital Signs Date Time Temp Pulse Resp B/P (MAP) Pulse Ox O2 Delivery O2 Flow Rate FiO2 01/27/19 23:31 97 93 01/27/19 23:30 183/110 (134) 01/27/19 20:42 98.6 18 Room Air Laboratory Data Labs 24H Laboratory Tests 2 01/27/19 19:52: Immature Granulocyte % (Auto) 1.0, Neutrophils (%) (Auto) 76.2H, Lymphocytes (%) (Auto) 11.1L, Monocytes (%) (Auto) 10.8H, Eosinophils (%) (Auto) 0.5, Basophils (%) (Auto) 0.4, Neutrophils # (Auto) 10.1H, Lymphocytes # (Auto) 1.5, Monocytes # (Auto) 1.4H, Eosinophils # (Auto) 0.1, Basophils # (Auto) 0.1, Nucleated Red Blood Cells % (auto) 0.0, Anion Gap 13, Glomerular Filtration Rate 15.4L, Lactic Acid Level 2.9*H, Calcium Level 9.5, Magnesium Level 2.5H, Total Creatine Kinase 45, Creatine Kinase MB 1.8, Creatine Kinase MB Relative Index 4.00, Troponin I 0.09, XV-Mku-[id number]-Type Natriuretic Peptide 3013H CBC/BMP Laboratory Tests 01/27/19 19:52 Microbiology Microbiology 01/27/19 Respiratory Virus Panel (PCR) ([facility]) - Final, Complete 01/27/19 Blood Culture, Received Pending Assessment/Plan 83 yo man with HFpEF, hypertension, stage 4 CKD, COPD, DM and morbid obesity who presents in acute decompensated heart failure with volume overload in the setting of abruptly stopping his medication in the middle of outpatient volume optimization. Plan: Acute decompensated heart failure, on chronic HFpEF -s/p 100mg IV lasix in the ED -200mg IV lasix x 1, will require likely Q6-8H dosing of lasix but will await data/response to determine dosing -woodson catheter for strict I/Os -1L fluid restriction -continue aldactone 25 BID -Q8H BMP for aggressive electrolyte repletion given the hypoK with ongoing aggressive diuresis -Last TTE in EMR was 2013, will order one for tomorrow morning -EKG and trop with no evidence of acute ischemia, monitor on telemetry -2g salt consistent carb diet Hypertensive urgency: -continue clonidine 0.2 BID -continue amlodipine 10 QD -continue hydralazine 20 TID -diuresis as above ARNAV on CKD: 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 in the setting of volume overload -diuresis as above, expect improvement if 2/2 congestive nephropathy -Monitor -strict I/Os -consider nephrology consult, will defer to PCP taking over care in the morning as has been managing CKD Hyperlipidemia: -continue Pravastatin CAD -continue ASA -continue Verapamil -continue Nitro PRN Epilepsy: -continue home tegretol GERD: -protonix chronic constipation: -lacutlose BID -colace QD Hypothyroidism: -continue home synthroid COPD: -continue advair, symbicort -PRN albuterol nebs for wheezing Other chronic meds: -Mirtazapine -Pramipexole -Tums DVT prophylaxis: heparin 5000u Q8H Diet: consistent carbohydrate Dispo: pending clinical improvement Plan / VTE VTE Prophylaxis Ordered?: Yes MONICA SCHUSTER MD Jan 28, 2019 01:09
[2019-01-28] MEDS ORDERED: KETOROLAC 30 MG/ML VIAL (J1885) IV PRN (02:00)
[2019-01-28] MEDS ORDERED: fentaNYL 100 MCG/2 ML INJECTION (J3010) IV PRN (02:00)
[2019-01-28 02:32] LABS: CALCIUM LEVEL 9.5 MG/DL (8.8-10.2); CREATININE FOR GFR 3.84 MG/DL (0.70-1.30); GLOMERULAR FILTRATION RATE 16.2 (>35); POTASSIUM SERUM 2.6 MEQ/L (3.5-5.1)
[2019-01-28] MEDS ORDERED: POTASSIUM CHLORIDE 10 MEQ SR TABLET PO ONE ×3 (02:45→06:45)
[2019-01-28] MEDS: NITROGLYCERIN 0.4 MG SUBL TABLET SL SCH ×2 (02:55→17:26)
[2019-01-28] MEDS: ADVAIR HFA 115/21MCG INHALER INH SCH ×3 (03:01→20:24)
[2019-01-28] MEDS ORDERED: LORazepam 2 MG/ML VIAL (J2060) IV STA (03:07)
[2019-01-28 04:53] LABS: TROPONIN I 0.11 NG/ML (< 0.10)
[2019-01-28] MEDS ORDERED: **hydrALAZINE HCL** 25 MG TAB PO ONE (05:00)
[2019-01-28] MEDS: LEVOTHYROXINE 25MCG TABLET (0.025MG) PO SCH (05:10)
[2019-01-28] MEDS: HEPARIN SOD (PORCINE) 5000 UNITS/ML VIAL SC SCH ×3 (05:12→21:11)
--- NOTE | 2019-01-28 05:44 | ECGEPIP ---
[facility] - ED Test Date: 2019-01-27 Pat Name: GIOVANNI LEIJA Department: Room: - Gender: Male Night Stocker: : 1935 Requested By: LUIS DANIEL Stewart Order Number: [id number] Reading MD: Terry Riley Measurements Intervals [place] Rate: 91 P: 33 [place]: 188 QRS: -52 QRSD: 92 T: 29 QT: 360 QTc: 443 Interpretive Statements SINUS RHYTHM WITH OCCASIONAL VENTRICULAR PREMATURE COMPLEXES POSSIBLE RIGHT VENTRICULAR CONDUCTION DELAY INFERIOR MYOCARDIAL INFARCTION, PROBABLY OLD WITH POSTERIOR EXTENSION STEP IN AVR>V1, WITH WIDESPREAD ST DEPRESSION, CONSIDER LMCA OCCLUSION Electronically Signed on 01-28-2019 5:43:58 EDT by Terry Riley
[2019-01-28 05:51] LABS: HEMATOCRIT 40.6 % (42.0-52.0); MEAN CORPUSCULAR HEMOGLOBIN 31.4 pg (27.0-33.0); MEAN CORPUSCULAR HGB CONC 34.5 g/dl (32.0-36.5); PLATELET COUNT, AUTOMATED 310 10^3/uL (150-450); RED BLOOD COUNT 4.46 10^6/uL (4.30-6.10)
[2019-01-28 06:18] LABS: CALCIUM LEVEL 9.8 MG/DL (8.8-10.2); CREATININE FOR GFR 3.78 MG/DL (0.70-1.30); GLOMERULAR FILTRATION RATE 16.5 (>35); MAGNESIUM LEVEL 2.4 MG/DL (1.8-2.4); PHOSPHORUS LEVEL 4.8 MG/DL (2.5-4.9); POTASSIUM SERUM 2.8 MEQ/L (3.5-5.1)
[2019-01-28] MEDS: VERAPAMIL 40 MG TAB PO SCH ×3 (08:18→21:12)
[2019-01-28] MEDS: CALCIUM CARBONATE 500 MG CHEW U/D PO SCH (08:19)
[2019-01-28] MEDS: PRAMIPEXOLE 0.25 MG TAB PO SCH (08:19)
[2019-01-28] MEDS: carBAMazepine XR 100 MG TAB PO SCH ×3 (08:19→20:33)
[2019-01-28] MEDS: ASPIRIN 81 MG ENTERIC TAB PO SCH (08:19)
[2019-01-28] MEDS: SPIRONOLACTONE 25 MG TAB PO SCH ×2 (08:20→20:34)
[2019-01-28] MEDS: DOCUSATE SODIUM 100 MG CAP PO SCH (08:20)
[2019-01-28] MEDS: CALCITRIOL 0.25 MCG CAP (S0169) PO SCH (08:20)
[2019-01-28] MEDS: PANTOPRAZOLE 40MG TAB (PROTONIX) PO SCH (08:20)
[2019-01-28] MEDS: LACTULOSE 20 GM/30 ML SYRUP UD PO SCH ×3 (08:20→20:36)
[2019-01-28] MEDS: cloNIDine 0.2 MG TAB PO SCH ×2 (08:20→20:34)
[2019-01-28] MEDS ORDERED: **hydrALAZINE** 10 MG TAB PO SCH (09:00)
[2019-01-28] MEDS: TIOTROPIUM INHALER/CAPSULE (SPIRIVA) INH SCH (09:02)
[2019-01-28 09:23] LABS: TROPONIN I 0.09 NG/ML (< 0.10)
--- NOTE | 2019-01-28 09:29 | REP ---
CHEST, SINGLE VIEW: Single view of the chest is performed. There is no evidence of acute infiltrate. The cardiac silhouette is mildly prominent by may be magnified by technical factors. There is calcification and tortuosity of the thoracic aorta. The mediastinal silhouette is unchanged. There is chronic interstitial prominence unchanged. IMPRESSION: No acute pulmonary disease. Electronically Signed by Wale Ruth MD 01/29/2019 05:26 P
[2019-01-28 10:52] LABS: CALCIUM LEVEL 9.9 MG/DL (8.8-10.2); CREATININE FOR GFR 3.83 MG/DL (0.70-1.30); GLOMERULAR FILTRATION RATE 16.2 (>35)
[2019-01-28 10:55] LABS: POTASSIUM SERUM 2.9 MEQ/L (3.5-5.1)
--- NOTE | 2019-01-28 11:08 | IPNPDOC ---
Subjective Date Seen The patient was seen on 01/28/19. Subjective Chief Complaint/HPI Admitted overnight for Acute on chronic CHF. Events since last encounter Echo pending. Received total of 300 mg IV Lasix. per nursing staff report: edema significantly improved. Had an episode of vomiting and explosive BM w/o diarrhea this am. Tolerated breakfast within 20 minutes of vomiting episode. Has slowed response to swallow with pills and food. Significant hypokalemia noted after diuresis. Constitutional: Denies: Chills, Fever, Night Sweats Pulmonary: Reports: Dyspnea; Denies: Cough Cardiovascular: Denies: Chest Pain, Palpitations, Orthopnea, Paroxysmal Noc. Dyspnea, Lt Headedness Gastrointestinal: Reports: Nausea, Vomiting; Denies: Abdominal Pain, Diarrhea, Constipation Psych: Reports: Mood Normal, Depression; Denies: Memory Issues Objective Physical Examination General Exam: Positive: Alert, Cooperative, Mild Distress Eye Exam: Positive: PERRLA, EOMI, Other Eye Symptoms (Enucleated left eye); Negative: Sclera icteric ENT Exam: Positive: Atraumatic, Mucous membr. moist/pink, Pharynx Normal Neck Exam: Positive: Supple, JVD, +2 carotid pulse wo bruit; Negative: thyromegaly, Lymphadenopathy Chest Exam: Positive: Clear to auscultation, Diminished (diminished bases); Negative: Rhonchi, Wheezing Heart Exam: Positive: Rate Normal, Regular Rhythm, Normal S1, Normal S2, Murmurs (2/6 systolic murmur best heard at RUSB) Telemetry: Positive: PVCs Abdomen Exam: Positive: Normal bowel sounds, Soft, Other (obese, protuberant, ? AScites); Negative: Tenderness, Hepatospenomegaly Extremity Exam: Positive: Edema (trace), Normal pulses; Negative: Clubbing, Cyanosis, Tenderness Skin Exam: Positive: Nl turgor and temperature; Negative: Rash, Breakdown, Lesion, Pruritus Neuro Exam: Positive: Normal Speech, Strength at 5/5 X4 ext, Normal Tone, Sensation Intact, Cranial Nerves 3-12 NL Psych Exam: Positive: Mental status NL, Anxiety, Memory Intact, Oriented x 3 Assessment /Plan Problems (1) Hypokalemia Status: Acute Problem Text: po replacement ordered. Will monitor along with diuresis. (2) Acute CHF Status: Acute Response to Treatment: Improving Problem Text: Received total of 300 mg IV Lasix in last 12 hours. will hold on diuretic tx until seen by Nephro. Echo pending. Appears compensated currently. Fluid restriction of 1800 ml ordered until seen by Nephro. Prior regimen at home: Torsemide 100 mg po bid, Spironolactone 25 mg po bid. (3) CKD (chronic kidney disease) stage 4, GFR 15-29 ml/min Status: Chronic Problem Specific Plan: Consult Specialist Problem Text: Nephro consult placed. (4) Uncontrolled hypertension Status: Acute (5) Noncompliance with medication regimen Status: Acute Problem Text: recently opted not to take medications. PFS aware. Family involved in care. (6) Hypothyroid Status: Chronic Response to Treatment: Stable (7) BPH (benign prostatic hyperplasia) Status: Chronic Response to Treatment: Stable Problem Text: Huitron catheter in place for critical care monitoring. Monitor for urinary retention symptoms. (8) COPD (chronic obstructive pulmonary disease) Status: Chronic Response to Treatment: Stable Problem Text: wonder if copd is main contributor to his dyspnea at this point. (9) Chronic constipation Status: Chronic Problem Text: uses Lactulose bid Plan/VTE VTE Prophylaxis Ordered?: Yes Plan Therapy: PT, OT, Speech Pt and Family Services: Home Care Diagnostics: Repeat Labs in AM, TTE Anticipated Discharge: Home With Services Advance Directives: DNR VS, I&O, 24H, Annabel Vital Signs/I&O Vital Signs Date Time Temp Pulse Resp B/P (MAP) Pulse Ox O2 Delivery O2 Flow Rate FiO2 01/28/19 09:36 170/80 (110) 01/28/19 08:18 97 01/28/19 08:00 98.8 20 98 Room Air I&O- Last 24 Hours up to 6 AM 01/28/19 06:00 Intake Total 0 ml Output Total 700 ml Balance -700 ml Laboratory Data 24H LABS Laboratory Tests 2 01/27/19 19:52: Immature Granulocyte % (Auto) 1.0, Neutrophils (%) (Auto) 76.2H, Lymphocytes (%) (Auto) 11.1L, Monocytes (%) (Auto) 10.8H, Eosinophils (%) (Auto) 0.5, Basophils (%) (Auto) 0.4, Neutrophils # (Auto) 10.1H, Lymphocytes # (Auto) 1.5, Monocytes # (Auto) 1.4H, Eosinophils # (Auto) 0.1, Basophils # (Auto) 0.1, Nucleated Red Blood Cells % (auto) 0.0, Anion Gap 13, Glomerular Filtration Rate 15.4L, Lactic Acid Level 2.9*H, Calcium Level 9.5, Magnesium Level 2.5H, Total Creatine Kinase 45, Creatine Kinase MB 1.8, Creatine Kinase MB Relative Index 4.00, Troponin I 0.09, UH-Qvo-C-Type Natriuretic Peptide 3013H 01/28/19 01:50: Anion Gap 13, Glomerular Filtration Rate 16.2L, Calcium Level 9.5, Troponin I 0.11#H, Lactic Acid Followup at 4 Hours 2.1*H 01/28/19 05:19: Nucleated Red Blood Cells % (auto) 0.0, Anion Gap 11, Glomerular Filtration Rate 16.5L, Lactic Acid Level 1.8, Calcium Level 9.8, Magnesium Level 2.4, Phosphorus Level 4.8 01/28/19 08:49: Anion Gap 11, Glomerular Filtration Rate 16.2L, Calcium Level 9.9, Troponin I 0.09 CBC/BMP Laboratory Tests 01/27/19 19:52 01/28/19 01:50 01/28/19 05:19 01/28/19 08:49 Microbiology Microbiology 01/28/19 Blood Culture, Received Pending 01/27/19 Respiratory Virus Panel (PCR) ([facility]) - Final, Complete 01/27/19 Blood Culture, Received Pending Jada Hopson Jan 28, 2019 11:08 Davie Lenz MD Jan 28, 2019 11:52
[2019-01-28] MEDS: POTASSIUM CHLORIDE 10 MEQ SR TABLET PO SCH ×4 (12:02→20:33)
[2019-01-28] MEDS ORDERED: PILL CUTTER 1 EACH XX PRN (12:15)
[2019-01-28] MEDS ORDERED: VARIBAR PUDDING 40% w/v 230ML TUBE As Ordered ONE (13:42)
[2019-01-28] MEDS ORDERED: VARIBAR NECTAR 40% w/v 240ML SUSP BTL As Ordered ONE (13:42)
[2019-01-28] MEDS ORDERED: E-Z-PAQUE 96% w/w SUSP 176GM BTL As Ordered ONE (13:43)
[2019-01-28] MEDS ORDERED: BARIUM SULFATE 700 MG TABLET (E-Z-DISK) As Ordered ONE (13:43)
[2019-01-28] MEDS: **hydrALAZINE HCL** 25 MG TAB PO SCH ×2 (15:58→20:34)
[2019-01-28 16:13] LABS: CALCIUM LEVEL 10.1 MG/DL (8.8-10.2); CREATININE FOR GFR 3.9 MG/DL (0.70-1.30); GLOMERULAR FILTRATION RATE 15.9 (>35); POTASSIUM SERUM 3.3 MEQ/L (3.5-5.1); TROPONIN I 0.06 NG/ML (< 0.10)
--- NOTE | 2019-01-28 17:11 | REP ---
REASON: Question ascites. Limited abdominal ultrasound examination was performed on all four quadrants. There is no ascites. This limited exam shows bilateral anechoic structures arising from each kidney, incompletely imaged on this limited exam. The largest structure on the right is 5 cm and the largest on the left is 6 cm and although partially imaged they appear to be simple cysts. Complete renal ultrasound was performed on 01/01/2019 and that examination showed bilateral renal cysts. Electronically Signed by Castillo Lockett DO 01/29/2019 10:25 A
[2019-01-28] MEDS: NITROGLYCERIN 0.4 MG SUBL TABLET SL PRN ×2 (17:37→17:47)
[2019-01-28] MEDS ORDERED: LIDOCAINE 2% JELLY 6 ML SYRINGE TOP PRN (18:45)
[2019-01-28] MEDS ORDERED: LIDOCAINE 2% JELLY 30 ML TOP PRN (19:00)
[2019-01-28] MEDS: PRAVASTATIN 20 MG TAB PO SCH (20:33)
[2019-01-28] MEDS: MIRTAZAPINE 15 MG TAB PO SCH (20:34)
[2019-01-28] MEDS: amLODIPine 10 MG TAB PO SCH (20:35)
[2019-01-28] MEDS ORDERED: POTASSIUM CHLORIDE 10% LIQ 20 MEQ/15 ML UDC PO ONE (21:15)
[2019-01-28 22:08] LABS: CALCIUM LEVEL 9.3 MG/DL (8.8-10.2); CREATININE FOR GFR 3.97 MG/DL (0.70-1.30); GLOMERULAR FILTRATION RATE 15.6 (>35); POTASSIUM SERUM 3.7 MEQ/L (3.5-5.1)
[2019-01-29] VITALS (7 sets, daily range): BP systolic 184–215; BP diastolic 84–108
--- NOTE | 2019-01-29 00:12 | CR ---
DATE OF CONSULTATION: 01/28/2019 REQUESTING PROVIDER: Jada Hopson REASON FOR CONSULTATION: Chronic kidney disease stage IV and congestive heart failure (CHF) exacerbation. HISTORY OF PRESENT ILLNESS: Ms. Bradford Cevallos is an 83-year-old male, with a past medical history of diastolic congestive heart failure with ejection fraction of 65%, hypertension, chronic kidney disease stage IV with baseline creatinine in the high 3s, obstructive sleep apnea, dyslipidemia, chronic obstructive pulmonary disease (COPD), hypothyroidism, and other comorbid conditions mentioned below. Patient presented to the emergency room with complaint of progressively worsening shortness of breath. He reports that he has been sleeping in an inclined position in an electric bed for some time now, has progressively become more dyspneic with even mild exertion. He reports he discontinued all his medications on Monday because "I couldn't take it any more." The patient reports his antihypertensives and diuretics are managed by his primary care, Dr. Ortiz, who he sees quite closely and who has recently been up titrating his medications. The patient lives alone and manages his medicines himself. He reports he has help from his grandson who does check on him. On arrival in the emergency room, the patient was significantly hypertensive with blood pressure 230/119. He was saturating 99% on room air on arrival. Chest x-ray did not show any overt pulmonary edema. The patient was resumed on antihypertensives and was given IV diuretics. Nephrology consultation was called for help in the management of this patient. I saw and examined Mr. Bradford Cevallos this morning at the bedside while he was receiving physical therapy session. He reports that his dyspnea has improved since admission, though he still becomes short of breath relatively simply. Most recent kidney and bladder imaging from December of 2018 are reviewed. PAST MEDICAL HISTORY: Chronic kidney disease stage IV, baseline creatinine high 3s, hypertension, diastolic congestive heart failure with preserved ejection fraction, obstructive sleep apnea, epilepsy, dyslipidemia, benign prostatic hypertrophy, COPD, secondary hyperparathyroidism of renal origin, history of seizure disorder, hypothyroidism, dyslipidemia. ALLERGIES: LATEX. 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 FAMILY HISTORY: His mother and father are . There is a family history of coronary artery disease and hypertension. SOCIAL HISTORY: The patient is a remote smoker. Denies alcohol or drug use. Lives alone, has a grandson that checks in with him. HOME MEDICATIONS: Reviewed and include albuterol, amlodipine 10 mg by mouth daily, aspirin 81 mg by mouth daily, calcitriol 0.25 mg by mouth daily, calcium carbonate 1000 mg by mouth daily, carbamazepine 100 mg by mouth three times a day, vitamin 3 2000 units by mouth daily, clonidine 0.2 mg by mouth twice a day, hydralazine 20 mg by mouth three times a day, lactulose 30 mL by mouth twice a day, levothyroxine 25 mcg by mouth daily, mirtazapine 15 mg by mouth nightly, Protonix 40 mg by mouth daily, Mirapex 0.25 mg by mouth daily, pravastatin 40 mg by mouth nightly, Advair one puff inhaled twice daily, spironolactone 25 mg by mouth twice a day, torsemide 100 mg by mouth twice a day, Verapamil 120 mg by mouth three times a day. REVIEW OF SYSTEMS: CONSTITUTIONAL: He denies fevers or chills. He reports progressive weakness and fatigue. EYES: He reports enucleation of left eye. He reports decreased visual acuity. EARS, NOSE AND THROAT (ENT): He denies sore throat or dysphagia. SKIN: He denies any new pruritus or ulcers. PULMONARY: He reports progressive shortness of breath. He reports inhaler use, COPD and is an ex-smoker. CARDIOVASCULAR: He denies a history of myocardial infarction or stenting. He reports having to sleep in an inclined position. He reports dyspnea on exertion. He reports edema. GASTROINTESTINAL: He denies nausea, vomiting or diarrhea. He reports GERD. GENITOURINARY: He has a history of BPH. He denies urinary tract infection (UTI) symptoms. HEMATOLOGIC: He denies bruising or bleeding tendencies. He denies blood transfusions. ENDOCRINE: He reports hypothyroidism and secondary hyperparathyroidism. MUSCULOSKELETAL: He reports trouble with his right shoulder and chronic pain of the right shoulder. He denies any acute myalgias or arthralgias. NEUROLOGIC: He reports a history of seizures. He denies focal weakness. PSYCHIATRIC: He reports anxiety and stress. PHYSICAL EXAMINATION: Vital signs: Temperature 98.6, pulse 102, respiratory rate 18, blood [id number], saturating 96% on room air. Intake was 860, urine output was 1950, net negative 1 liter. Weight on the bed scale today is 90 kg. GENERAL: The patient is seen sitting up at the edge of the bed, upright, legs tingling, receiving physical therapy. Elderly male, appears stated age, appears fatigued but is in no acute respiratory distress. Left eye is enucleated. NECK: Neck is supple. Jugular veins are mildly elevated. CARDIAC: S1, S2, regular rate and rhythm. Systolic murmur present, at most 1+ edema in the peripheries. LUNGS: Rhonchorous breath sounds throughout and diminished at the bases. No tachypnea or accessory muscle use. ABDOMEN: Abdomen is soft and nontender. There are bowel sounds. There is no suprapubic fullness to suggest distended bladder. EXTREMITIES: Showed trace to at most 1+ edema below the martin. SKIN: Normal temperature and turgor. MUSCULOSKELETAL: The patient moves all four extremities on command. NEUROLOGIC: He is cooperative with physical exam. No focal deficit. LABORATORY DATA: Sodium 135, potassium 3.3, bicarbonate 29, BUN 71, creatinine 3.9, glucose 180, calcium 10.1, magnesium 2.4, hemoglobin 14. Respiratory viral panel: Negative. Chest x-ray: No pulmonary edema. Abdominal ultrasound: No ascites and renal cysts are noted bilaterally. INPATIENT MEDICATIONS: Tylenol as needed, albuterol as needed, amlodipine 10 mg by mouth nightly, aspirin 81 mg by mouth daily, calcitriol 0.25 mcg by mouth daily, TUMS one gram by mouth daily, Tegretol 100 mg by mouth three times a day, clonidine 0.2 mg by mouth twice a day, docusate 100 mg by mouth daily. He received a total of 300 mg of IV Lasix. He is on heparin 5000 units subcu every 8 hours, hydralazine 57.5 mg by mouth three times a day, lactulose 30 mL by mouth twice a day, levothyroxine 25 mcg by mouth daily, mirtazapine 15 mg by mouth nightly, Protonix 40 mg by mouth daily. Received several doses of potassium supplementation and was on potassium 40 mEq by mouth three times a day. Mirapex 0.25 mg by mouth daily, pravastatin 40 mg by mouth nightly, Advair two puffs inhaled twice a day, spironolactone 25 mg by mouth twice a day, Spiriva one inhalation daily, verapamil 120 mg by mouth three times a day. PROBLEMS: 1. Chronic kidney disease stage IV. Patient's present creatinine is in the high 3s, which appears to be his baseline. There is mild hypervolemia on exam, and he is being diuresed. He had a renal ultrasound in December of 2018, which was consistent with bilateral renal cysts and chronic kidney disease. Additionally, he had a bladder ultrasound on January 01, 2019 that did not show any significant urinary retention. 2. Shortness of breath. The patient complains of dyspnea on exertion and shortness of breath that prompted him to come to the emergency room. However, he is saturating well on room air and chest x-ray does not show pulmonary edema, nor does his physical exam show very impressive hypervolemia. At present, he appears only mildly volume overloaded. I would continue him on IV Lasix with oral spironolactone at this time, and I would consider COPD as an additional cause of his shortness of breath. And it may also be related to his very uncontrolled blood pressures upon arrival. A repeat echocardiogram is pending. The last available echocardiogram was from 5 years prior. Continue with oral fluid restriction. He also continues on the usual nebulizer treatments, bronchodilators, inhaled steroids. 3. Uncontrolled hypertension. The patient stopped his antihypertensives and diuretics since Monday. Blood pressure was markedly uncontrolled on arrival. His home antihypertensives were resumed. His hydralazine has been up titrated by the primary team. He is presently on amlodipine, verapamil, clonidine, spironolactone, hydralazine, Lasix. He is not presently receiving a beta elisabeth, and his heart rate is in the 80s to 90s; that can be added if necessary. 4. BPH, most recent bladder imaging about a month ago did not show any significant urinary retention. 5. COPD, possibly with COPD exacerbation as a cause of his shortness of breath and dyspnea on exertion as he does not seem to very markedly volume overloaded at present. 6. Hypokalemia. Has received aggressive supplementation by the primary team and is back on his spironolactone. Thank you for involving me in the care of Mr. Cevallos. I will be happy to follow him along with you. Edited 01/29/2019 [facility]
[2019-01-29] MEDS: LEVOTHYROXINE 25MCG TABLET (0.025MG) PO SCH (05:45)
[2019-01-29] MEDS: HEPARIN SOD (PORCINE) 5000 UNITS/ML VIAL SC SCH ×3 (05:45→21:14)
[2019-01-29 06:10] LABS: HEMATOCRIT 39.9 % (42.0-52.0); HEMOGLOBIN 13.4 g/dl (13.5-17.5); MEAN CORPUSCULAR HEMOGLOBIN 30.7 pg (27.0-33.0); MEAN CORPUSCULAR HGB CONC 33.6 g/dl (32.0-36.5); MEAN CORPUSCULAR VOLUME 91.5 fl (80.0-96.0); PLATELET COUNT, AUTOMATED 328 10^3/uL (150-450); RED BLOOD COUNT 4.36 10^6/uL (4.30-6.10); WHITE BLOOD COUNT 13.6 10^3/uL (4.0-10.0)
[2019-01-29 06:41] LABS: CALCIUM LEVEL 9.5 MG/DL (8.8-10.2); CREATININE FOR GFR 3.88 MG/DL (0.70-1.30); MAGNESIUM LEVEL 2.6 MG/DL (1.8-2.4); PHOSPHORUS LEVEL 3.4 MG/DL (2.5-4.9); POTASSIUM SERUM 3.9 MEQ/L (3.5-5.1)
[2019-01-29] MEDS: TIOTROPIUM INHALER/CAPSULE (SPIRIVA) INH SCH (07:45)
[2019-01-29] MEDS: ADVAIR HFA 115/21MCG INHALER INH SCH (07:46)
--- NOTE | 2019-01-29 08:08 | ECGEPIP ---
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 Left axis deviation Incomplete RBBB Possible Right ventricular hypertrophy versus prior inferoposterior [place] Nonspecific ST/T-wave abnormalities less marked than 01/28/19 at 2:15 AM Electronically Signed on 01-29-2019 8:07:36 EDT by Lopez Soler
[2019-01-29] MEDS: CALCIUM CARBONATE 500 MG CHEW U/D PO SCH (09:19)
[2019-01-29] MEDS: ASPIRIN 81 MG ENTERIC TAB PO SCH (09:20)
[2019-01-29] MEDS: VERAPAMIL 40 MG TAB PO SCH ×3 (09:20→20:04)
[2019-01-29] MEDS: carBAMazepine XR 100 MG TAB PO SCH ×3 (09:20→20:02)
[2019-01-29] MEDS: PANTOPRAZOLE 40MG TAB (PROTONIX) PO SCH (09:20)
[2019-01-29] MEDS: PRAMIPEXOLE 0.25 MG TAB PO SCH (09:20)
[2019-01-29] MEDS: SPIRONOLACTONE 25 MG TAB PO SCH ×2 (09:21→20:03)
[2019-01-29] MEDS: cloNIDine 0.2 MG TAB PO SCH ×2 (09:21→20:03)
[2019-01-29] MEDS: DOCUSATE SODIUM 100 MG CAP PO SCH (09:21)
[2019-01-29] MEDS: POTASSIUM CHLORIDE 10 MEQ SR TABLET PO SCH (09:21)
[2019-01-29] MEDS: METOPROLOL SUCC *XL* 25MG TAB (TopROL *XL*) PO SCH (09:23)
[2019-01-29] MEDS: **hydrALAZINE HCL** 25 MG TAB PO SCH (09:23)
[2019-01-29] MEDS: LACTULOSE 20 GM/30 ML SYRUP UD PO SCH ×2 (09:23→20:05)
[2019-01-29] MEDS: TORSEMIDE 100 MG TAB PO SCH ×2 (09:23→16:09)
[2019-01-29] MEDS: CALCITRIOL 0.25 MCG CAP (S0169) PO SCH (09:23)
--- NOTE | 2019-01-29 09:56 | ECGEPIP ---
[facility] - ED Test Date: 2019-01-28 Pat Name: GIOVANNI LEIJA Department: Room: X1404-12 Gender: Male Controls Designer: VINCENT : 1935 Requested By: ITALO Simon Order Number: [id number] Reading MD: Marilu Vaughn Measurements Intervals [place] Rate: 88 P: 0 CT: 173 QRS: -27 QRSD: 106 T: 23 QT: 387 QTc: 469 Interpretive Statements SINUS RHYTHM POSSIBLE LEFT ATRIAL ENLARGEMENT BORDERLINE LEFT AXIS DEVIATION INCOMPLETE RIGHT BUNDLE BRANCH BLOCK ST DEVIATION AND MODERATE T-WAVE ABNORMALITY, CONSIDER ANTERIOR ISCHEMIA INFERIOR MD, PROBABLY OLD WITH POSTERIOR EXTENSION SIMILAR 01/27/19 Electronically Signed on 01-29-2019 9:56:13 EDT by Marilu Vaughn
[2019-01-29] MEDS ORDERED: POTASSIUM CHLORIDE 10 MEQ SR TABLET PO SCH (10:00)
--- NOTE | 2019-01-29 10:09 | IPNPDOC ---
Subjective Date Seen The patient was seen on 01/29/19. Subjective Chief Complaint/HPI Less SOB. Per PT, he remains very unsteady and weak Constitutional: Denies: Chills, Fever Pulmonary: Denies: Dyspnea, Cough Cardiovascular: Denies: Chest Pain, Palpitations Gastrointestinal: Denies: Nausea, Vomiting, Abdominal Pain, Diarrhea, Constipation Objective Physical Examination General Exam: Positive: Alert, No Acute Distress Eye Exam: Positive: Other Eye Symptoms (Enucleated left eye) Chest Exam: Positive: Clear to auscultation, Diminished (diminished bases); Negative: Rhonchi, Wheezing Heart Exam: Positive: Rate Normal, Regular Rhythm, Normal S1, Normal S2, Murmurs (2/6 systolic murmur best heard at RUSB) Telemetry: Positive: PVCs Abdomen Exam: Positive: Normal bowel sounds, Soft, Other (obese, protuberant, ); Negative: Tenderness, Hepatospenomegaly Extremity Exam: Negative: Edema Skin Exam: Positive: Lesion; Negative: Breakdown Neuro Exam: Positive: Normal Speech, Cranial Nerves 3-12 NL Psych Exam: Positive: Mental status NL, Memory Intact, Oriented x 3 Assessment /Plan Problems (1) Acute CHF Status: Acute Response to Treatment: Improving Problem Text: 01/29 - Appears Euvolemic currently with current dose of Demadex 100 BID and Spironolactone 25 BID Fluid restriction of 1800 ml ordered until seen by Nephro. Prior regimen at home: Torsemide 100 mg po bid, Spironolactone 25 mg po bid. (2) Uncontrolled hypertension Status: Acute Problem Text: BP remains elevated despite multiple medications: Toprol XL 25 daily Catapress 0.2 BID Verapamil 120 TID Demoadex 100 BID Aldactone 25 BID Norvasc 10 QHS (3) CKD (chronic kidney disease) stage 4, GFR 15-29 ml/min Status: Chronic Problem Specific Plan: Consult Specialist Problem Text: Nephro consult placed. (4) Hypokalemia Status: Resolved Problem Text: Resolved with po replacement - will cut down dose to prevent hyperkalemia in patient with CKD taking potassium sparing diuretic (5) Noncompliance with medication regimen Status: Acute Problem Text: recently opted not to take medications. PFS aware. Family involved in care. (6) Hypothyroid Status: Chronic Response to Treatment: Stable (7) BPH (benign prostatic hyperplasia) Status: Chronic Response to Treatment: Stable Problem Text: Huitron catheter in place for critical care monitoring. Monitor for urinary retention symptoms. (8) COPD (chronic obstructive pulmonary disease) Status: Chronic Response to Treatment: Stable Problem Text: wonder if copd is main contributor to his dyspnea at this point. Remains on Advair and Incruse (9) Chronic constipation Status: Chronic Problem Text: uses Lactulose bid (10) Depression Status: Chronic Problem Text: Depression issues have been present since his 2 years ago. Seem to be worsening lately related to frustration over chronic medical issues and physical limitation. Having to go to appointments frequently for adjustments in his diuretics has also need frustrating He was started on Mirtazipine by Dr. Ortiz earlier this month, but I am not certain he was taking this He declined counseling in office. Per patient and son, he stopped his meds prior to this admission because he just did not want to be alive any more. He has been restarted on Mirtazipine now and we will need to monitor his mood - discuss option of inpatient IMHU vs outpatient counseling Plan/VTE VTE Prophylaxis Ordered?: Yes (SQ heparin) Plan Therapy: PT, OT, Speech Pt and Family Services: Home Care Diagnostics: Repeat Labs in AM, TTE Anticipated Discharge: Home With Services Advance Directives: DNR Disposition Pre PT - may need subacute rehab VS, I&O, 24H, Annabel Vital Signs/I&O Vital Signs Date Time Temp Pulse Resp B/P (MAP) Pulse Ox O2 Delivery O2 Flow Rate FiO2 01/29/19 08:27 98.3 91 20 189/96 (127) 98 Room Air I&O- Last 24 Hours up to 6 AM 01/29/19 05:59 Intake Total 1564 ml Output Total 2640 ml Balance -1076 ml Laboratory Data 24H LABS Laboratory Tests 2 01/28/19 11:18: Urine Color YELLOW, Urine Appearance HAZY, Urine pH 7.0, Urine Specific [place] 1.010, Urine Protein 2+H, Urine Glucose (UA) 1+H, Urine Ketones NEGATIVE, Urine Blood 3+H, Urine Nitrite NEGATIVE, Urine Bilirubin NEGATIVE, Urine Urobilinogen 0.2, Urine Leukocyte Esterase NEGATIVE, Urine WBC (Auto) 25H, Urine RBC (Auto) TNTCH, Urine Hyaline Casts (Auto) 0, Urine Bacteria (Auto) 1+H, Urine Squamous Epithelial Cells 0, Urine Mucus (Auto) SMALL, Urine Sperm (Auto) 01/28/19 15:26: Anion Gap 10, Glomerular Filtration Rate 15.9L, Calcium Level 10.1, Troponin I 0.06# 01/28/19 21:42: Anion Gap 12, Glomerular Filtration Rate 15.6L, Calcium Level 9.3 01/29/19 05:55: Anion Gap 11, Glomerular Filtration Rate 16.0L, Calcium Level 9.5, Nucleated Red Blood Cells % (auto) 0.0, Phosphorus Level 3.4#, Magnesium Level 2.6H CBC/BMP Laboratory Tests 01/28/19 15:26 01/28/19 21:42 01/29/19 05:55 Microbiology Microbiology 01/28/19 Urine Culture - Final, Complete 01/28/19 Blood Culture - Preliminary, Resulted No growth after 24 hours . All specim... 01/27/19 Respiratory Virus Panel (PCR) ([facility]) - Final, Complete 01/27/19 Blood Culture - Preliminary, Resulted No growth after 24 hours . All specim... JHONATHAN RAMOS PA-C Jan 29, 2019 10:09
--- NOTE | 2019-01-29 13:54 | IPN ---
DATE: 01/29/2019 SUBJECTIVE: Bradford is seen and examined this morning at the bedside. He reports he is feeling much better. Reports his dyspnea has resolved and he feels that he can get around a little bit easier. However, he did require my assistance even to just sit up at the edge of the bed this morning and he still seems quite unsteady. Blood pressures have been markedly uncontrolled. The patient continues on room air. Temperature 98.3, pulse 91, respiratory rate 20, blood pressure 189/96, saturating 98% on room air. Intake yesterday was 1500, urine output yesterday was 2400, net negative 800, weight on the bed scale today is 89.8 kg. General: The patient was seen lying down in bed, was able to sit up at the edge of the bed, legs dangling, with assistance, awake, alert and oriented times three. Cooperative with physical exam in no acute distress. Enucleated left diet. Lungs show symmetric air entry bilaterally. Occasional rhonchus and prolonged expiration. Heart sounds are regular S1-S2 systolic murmur. No edema in the peripheries. Palpable radial pulses. Abdomen is soft and nontender. There are bowel sounds. Extremities are negative for edema. Skin normal temperature and turgor. Neurologic: He is oriented to person, place, situation and is cooperative with physical exam and answers simple questions appropriately. LABORATORIES: White count 13.6, hemoglobin 13.4, sodium 137, potassium 3.9, bicarbonate 24, BUN 71, creatinine 3.8. INPATIENT MEDICATIONS: I started the patient on Toprol XL 25 mg daily. The primary team cut down his potassium dosing. Remainder of medications are unchanged from prior. PROBLEMS: 1. Chronic kidney disease stage IV. Renal function is at his usual baseline. His electrolytes are acceptable. His potassium supplementation has already appropriately been cut down by the primary team. He is not suitable for NBA or ARB given his advanced CKD. 2. Uncontrolled hypertension. The patient reports he does monitor his home blood pressure and systolic is usually around 200s at home despite professed compliance with multiple antihypertensives. I am adding metoprolol XL 25 mg p.o. daily. His pulse is in the 90s. This dose can be up titrated as needed. I would keep him off of NBA or ARB. 3. Diastolic congestive heart failure, chronic, last echo from 2013. Volume status appears fairly compensated. Continue torsemide 100 mg p.o. b.i.d. and spironolactone 25 mg p.o. b.i.d. He is on room air and reports improvement in his dyspnea on exertion.
[2019-01-29 15:17] LABS: CALCIUM LEVEL 9.8 MG/DL (8.8-10.2); CREATININE FOR GFR 4.09 MG/DL (0.70-1.30)
[2019-01-29] MEDS: **hydrALAZINE** 50 MG TAB PO SCH ×2 (16:09→20:02)
--- NOTE | 2019-01-29 17:00 | REP ---
Examination Requested: Cookie Swallow Reason For Exam: Evaluate swallowing The procedure was performed by CHANDRAKANT Alvarez, under the direct supervision of Dr. Ruth. The procedure was performed with Clementina Escudero from speech pathology present. 5 ml aliquots of thin, nectar, pudding, mixed fruit, soft food, hard food and pill consistency barium was administered. Penetration was seen with thin consistency barium. The detailed report of this examination will be provided by speech pathology. 2.4 minutes of fluoroscopy time was utilized for this procedure. Reviewed by CHANDRAKANT Sol 01/28/2019 02:54 P Electronically Signed by Wale Ruth MD 01/29/2019 04:51 P
[2019-01-29] MEDS: PRAVASTATIN 20 MG TAB PO SCH (20:02)
[2019-01-29] MEDS: MIRTAZAPINE 15 MG TAB PO SCH (20:03)
[2019-01-29] MEDS: amLODIPine 10 MG TAB PO SCH (20:03)
[2019-01-29] MEDS: ADVAIR HFA 230/21MCG INHALER INH SCH (21:30)
[2019-01-29 22:21] LABS: CALCIUM LEVEL 9.4 MG/DL (8.8-10.2); CREATININE FOR GFR 3.92 MG/DL (0.70-1.30); GLOMERULAR FILTRATION RATE 15.8 (>35); POTASSIUM SERUM 4.3 MEQ/L (3.5-5.1)
[2019-01-30] VITALS: BP_SYST 130; BP_SYST 138; BP_DIAS 62
[2019-01-30 04:00] VITALS: BP 204/108
[2019-01-30 05:39] LABS: HEMATOCRIT 36.6 % (42.0-52.0); HEMOGLOBIN 12.3 g/dl (13.5-17.5); MEAN CORPUSCULAR HEMOGLOBIN 31.5 pg (27.0-33.0); MEAN CORPUSCULAR HGB CONC 33.6 g/dl (32.0-36.5); MEAN CORPUSCULAR VOLUME 93.8 fl (80.0-96.0); PLATELET COUNT, AUTOMATED 288 10^3/uL (150-450); WHITE BLOOD COUNT 10.8 10^3/uL (4.0-10.0)
[2019-01-30] MEDS: HEPARIN SOD (PORCINE) 5000 UNITS/ML VIAL SC SCH ×3 (05:39→21:26)
[2019-01-30] MEDS: LEVOTHYROXINE 25MCG TABLET (0.025MG) PO SCH (05:39)
[2019-01-30 06:03] LABS: CALCIUM LEVEL 9.1 MG/DL (8.8-10.2); CREATININE FOR GFR 3.94 MG/DL (0.70-1.30); GLOMERULAR FILTRATION RATE 15.7 (>35); MAGNESIUM LEVEL 2.3 MG/DL (1.8-2.4); PHOSPHORUS LEVEL 4.1 MG/DL (2.5-4.9); POTASSIUM SERUM 3.9 MEQ/L (3.5-5.1)
[2019-01-30] MEDS: TIOTROPIUM INHALER/CAPSULE (SPIRIVA) INH SCH (07:23)
[2019-01-30] MEDS: ADVAIR HFA 230/21MCG INHALER INH SCH ×2 (07:24→20:49)
[2019-01-30 08:00] VITALS: BP 139/85
[2019-01-30] MEDS ORDERED: CHLORTHALIDONE 12.5MG PER 1/2 TABLET PO SCH (09:00)
--- NOTE | 2019-01-30 09:09 | IPNPDOC ---
Subjective Date Seen The patient was seen on 01/30/19. Subjective Chief Complaint/HPI CHF Events since last encounter Continues to slowly improve. Tolerating breakfast well this am. PT recommending rehab due to weakness. BP is markedly improved with addition of Metoprolol. Constitutional: Reports: Weakness; Denies: Chills, Fever, Night Sweats Pulmonary: Denies: Dyspnea, Cough Cardiovascular: Denies: Chest Pain, Palpitations, Orthopnea, Paroxysmal Noc. Dyspnea, Lt Headedness Psych: Reports: Mood Normal; Denies: Depression, Memory Issues Objective Physical Examination General Exam: Positive: Alert, No Acute Distress Eye Exam: Positive: Other Eye Symptoms (Enucleated left eye) Chest Exam: Positive: Clear to auscultation, Diminished (diminished bases); Negative: Rhonchi, Wheezing Heart Exam: Positive: Rate Normal, Regular Rhythm, Normal S1, Normal S2, Murmurs (2/6 systolic murmur best heard at RUSB) Telemetry: Positive: PVCs Abdomen Exam: Positive: Normal bowel sounds, Soft, Other (obese, protuberant, ); Negative: Tenderness, Hepatospenomegaly Extremity Exam: Negative: Edema Skin Exam: Positive: Lesion; Negative: Breakdown Neuro Exam: Positive: Normal Speech, Cranial Nerves 3-12 NL Psych Exam: Positive: Mental status NL, Memory Intact, Oriented x 3 Assessment /Plan Problems (1) Acute CHF Status: Acute Response to Treatment: Improving Problem Text: 01/30/19: Appears Euvolemic currently with current dose of Demadex 100 BID and Spironolactone 25 BID 01/29 - Appears Euvolemic currently with current dose of Demadex 100 BID and Spironolactone 25 BID Fluid restriction of 1800 ml ordered until seen by Nephro. Prior regimen at home: Torsemide 100 mg po bid, Spironolactone 25 mg po bid. (2) Uncontrolled hypertension Status: Acute Problem Text: 01/30/19: today, improved BP Continue current regimen. Hydralazine titrated to 50 tid, in addition to other agents as listed. BP remains elevated despite multiple medications: Toprol XL 25 daily Catapres 0.2 BID Verapamil 120 TID Demadex 100 BID Aldactone 25 BID Norvasc 10 QHS (3) CKD (chronic kidney disease) stage 4, GFR 15-29 ml/min Status: Chronic Problem Specific Plan: Consult Specialist Problem Text: Nephro consult placed. (4) Noncompliance with medication regimen Status: Acute Problem Text: recently opted not to take medications. PFS aware. Family invo lved in care. (5) Hypothyroid Status: Chronic Response to Treatment: Stable (6) BPH (benign prostatic hyperplasia) Status: Chronic Response to Treatment: Stable Problem Text: Huitron catheter in place for critical care monitoring. Monitor for urinary retention symptoms. (7) COPD (chronic obstructive pulmonary disease) Status: Chronic Response to Treatment: Stable Problem Text: wonder if copd is main contributor to his dyspnea at this point. Remains on Advair and Incruse (8) Chronic constipation Status: Chronic Problem Text: uses Lactulose bid (9) Depression Status: Chronic Problem Text: Depression issues have been present since his 2 years ago. Seem to be worsening lately related to frustration over chronic medical issues and physical limitation. Having to go to appointments frequently for adjustments in his diuretics has also need frustrating He was started on Mirtazipine by Dr. Ortiz earlier this month, but I am not certain he was taking this He declined counseling in office. Per patient and son, he stopped his meds prior to this admission because he just did not want to be alive any more. He has been restarted on Mirtazipine now and we will need to monitor his mood - discuss option of inpatient IMHU vs outpatient counseling (10) Hypokalemia Status: Resolved Problem Text: Resolved with po replacement - will cut down dose to prevent hyperkalemia in patient with CKD taking potassium sparing diuretic Plan/VTE VTE Prophylaxis Ordered?: Yes (SQ heparin) Plan Therapy: PT, OT, Speech Pt and Family Services: Home Care Diagnostics: Repeat Labs in AM, TTE Anticipated Discharge: Home With Services Advance Directives: DNR VS, I&O, 24H, Fishbone Vital Signs/I&O Vital Signs Date Time Temp Pulse Resp B/P (MAP) Pulse Ox O2 Delivery O2 Flow Rate FiO2 01/30/19 08:00 98.6 76 18 139/85 (103) 97 Room Air I&O- Last 24 Hours up to 6 AM 01/30/19 06:00 Intake Total 1540 ml Output Total 775 ml Balance 765 ml Laboratory Data 24H LABS Laboratory Tests 2 01/29/19 14:27: Anion Gap 11, Glomerular Filtration Rate 15.0L, Calcium Level 9.8 01/29/19 21:39: Anion Gap 11, Glomerular Filtration Rate 15.8L, Calcium Level 9.4 01/30/19 05:14: Anion Gap 10, Glomerular Filtration Rate 15.7L, Calcium Level 9.1, Nucleated Red Blood Cells % (auto) 0.0, Phosphorus Level 4.1#, Magnesium Level 2.3 CBC/BMP Laboratory Tests 01/29/19 14:27 01/29/19 21:39 01/30/19 05:14 Microbiology Microbiology 01/28/19 Urine Culture - Final, Complete 01/28/19 Blood Culture - Preliminary, Resulted No Growth after 48 hours. All Specime... 01/27/19 Respiratory Virus Panel (PCR) ([facility]) - Final, Complete 01/27/19 Blood Culture - Preliminary, Resulted No Growth after 48 hours. All Specime... Jada Hopson Jan 30, 2019 09:09 Davie Lenz MD Jan 30, 2019 12:36
[2019-01-30] MEDS: LACTULOSE 20 GM/30 ML SYRUP UD PO SCH ×2 (09:57→20:30)
[2019-01-30] MEDS: POTASSIUM CHLORIDE 10 MEQ SR TABLET PO SCH (09:57)
[2019-01-30] MEDS: VERAPAMIL 40 MG TAB PO SCH ×3 (09:57→20:31)
[2019-01-30] MEDS: ASPIRIN 81 MG ENTERIC TAB PO SCH (09:58)
[2019-01-30] MEDS: SPIRONOLACTONE 25 MG TAB PO SCH ×2 (09:58→20:32)
[2019-01-30] MEDS: cloNIDine 0.2 MG TAB PO SCH ×2 (09:58→20:33)
[2019-01-30] MEDS: carBAMazepine XR 100 MG TAB PO SCH ×3 (09:58→20:32)
[2019-01-30] MEDS: PRAMIPEXOLE 0.25 MG TAB PO SCH (09:58)
[2019-01-30] MEDS: PANTOPRAZOLE 40MG TAB (PROTONIX) PO SCH (09:58)
[2019-01-30] MEDS: CALCIUM CARBONATE 500 MG CHEW U/D PO SCH (09:58)
[2019-01-30] MEDS: TORSEMIDE 100 MG TAB PO SCH ×2 (09:58→17:30)
[2019-01-30] MEDS: DOCUSATE SODIUM 100 MG CAP PO SCH (09:59)
[2019-01-30] MEDS: CALCITRIOL 0.25 MCG CAP (S0169) PO SCH (09:59)
[2019-01-30] MEDS: **hydrALAZINE** 50 MG TAB PO SCH ×3 (09:59→20:32)
[2019-01-30] MEDS: METOPROLOL SUCC *XL* 25MG TAB (TopROL *XL*) PO SCH (09:59)
--- NOTE | 2019-01-30 11:55 | ECHO ---
DATE OF PROCEDURE: 01/29/2019 AGE: 83. GENDER: Male. HEIGHT: 69 inches. WEIGHT: 229 pounds. BODY SURFACE AREA: 2.19 sq m. INPATIENT PROGRESSIVE CARE UNIT (PCU) ROOM: 3219. REFERRING PHYSICIAN: Nya Lee MD INDICATION: Heart failure (unspecified). MEASUREMENTS: 2D measurements: RV - 3.6 cm LV - 5.3 cm Septum 1.3 cm Posterior wall 1.3 cm Aortic root 3.8 cm Proximal ascending aorta 3.2 cm LA - 4.1 cm LVEF 85% Doppler measurements: AV - 1.56 m/s LVOT - 1.3 m/s LVOT diameter 2.5 cm MV - E 55 A 109 EA ratio 0.5 E prime 4.6 A prime 9.2 E/E prime ratio 12 PCWP 16 mmHg PV - 1.15 m/s Pulmonary artery acceleration time 116 ms PASP 30 mmHg IVC - 1.6 cm COMMENTS: Normal sinus rhythm without intraventricular conduction disturbance. Technically challenging study in light of the patient's body habitus, but diagnostically useful information was still obtained. M-mode and two-dimensional echocardiography was performed with pulsed, continuous wave, color flow and tissue Doppler studies. The left ventricular cavity size upper limits of normal with mild concentric left ventricle hypertrophy and hyperkinetic wall motion. Mildly dilated left atrium with grade 1 diastolic impairment of the left ventricle and current estimated mean left atrial pressure only slightly elevated. Normal right heart chamber sizes and motion with borderline pulmonary hypertension. Normal IVC size and collapse against an elevated central venous pressure. Moderate aortic valvular sclerosis without stenosis and only very mild insufficiency. Borderline dilated aortic root but normal proximal ascending aorta. Slightly thickened mitral annulus but normal-appearing leaflet thickness and excursion with no posterior systolic buckling and only very mild mitral insufficiency (physiologic). Normal-appearing tricuspid valve with no more than trace insufficiency. No apparent intracardiac mass or pericardial effusion.
[2019-01-30 12:00] VITALS: BP 168/92
--- NOTE | 2019-01-30 13:50 | IPN ---
DATE OF SERVICE: 01/30/2019 SUBJECTIVE: The patient is seen and examined this morning sitting out of bed to the chair. He denies any shortness of breath. He tells me that when he got washed up this morning with nursing assistance he felt very weak after that and felt his legs were almost ready to give out. His blood pressure has improved with the addition of beta elisabeth, but it still remains very labile. Temperature 98.6, pulse 76, respiratory rate 18, blood pressure 139/85, saturating 97% on room air. Intake yesterday was 1720. Urine output was not fully recorded because the patient had incontinent voids. His daily weight has down trended to 89.5. General: The patient is seen lying out of bed to the chair. Elderly male in no acute distress. Appears comfortable. Enucleated left eye. Diminished breath sounds at the bases, otherwise clear. No accessory muscle use. Comfortable on room air. Heart sounds are regular. S1, S2. There is a systolic murmur. There is no edema in the extremities. Abdomen is soft and nontender. There are bowel sounds. Genitourinary: Does not show any suprapubic bladder fullness. Skin: Normal temperature and turgor. Neurologic: He is oriented to person, place and situation. Cooperative with physical exam Answers simple questions appropriately. White count 10.8, hemoglobin 12.3, sodium 136, potassium 3.9, bicarbonate 24, BUN 74, creatinine 3.9, magnesium 2.3. INPATIENT MEDICATIONS: Reviewed by myself and no changes from prior. PROBLEMS: 1. Chronic kidney disease (CKD) stage IV. Renal function is at his usual baseline. Electrolytes are acceptable. He is not suitable for NBA or ARB given his advanced chronic kidney disease. He does not follow up with nephrology as an outpatient. Most recent imaging of the kidney and the bladder in December 2018 did not show any acute issues and were negative for retention. 2. Hypertension. Blood pressures remain quite labile. Systolic is fluctuating between 130 and 200. The patient reports his home blood pressure is usually very uncontrolled, systolic 180s to 200. Over the course of this admission, we have added a beta elisabeth and primary team has up titrated his hydralazine. His beta elisabeth is also at a low dose and can be up titrated as needed. I would keep him off of NBA or ARB. 3. Diastolic congestive heart failure, chronic. Last echocardiogram from 2019 is reviewed. Volume status appears fairly compensated. Continue current torsemide and spironolactone. 5. Disposition. Nephrology will intermittently follow the patient.
[2019-01-30 14:45] LABS: CALCIUM LEVEL 10.1 MG/DL (8.8-10.2); CREATININE FOR GFR 3.95 MG/DL (0.70-1.30); GLOMERULAR FILTRATION RATE 15.6 (>35); POTASSIUM SERUM 4.1 MEQ/L (3.5-5.1)
[2019-01-30 16:00] VITALS: BP 177/93
[2019-01-30] MEDS ORDERED: ONDANSETRON 4MG/2ML VIAL (J2405) IV PRN (16:30)
[2019-01-30 20:00] VITALS: BP 160/80
[2019-01-30] MEDS: amLODIPine 10 MG TAB PO SCH (20:32)
[2019-01-30] MEDS: MIRTAZAPINE 15 MG TAB PO SCH (20:32)
[2019-01-30] MEDS: PRAVASTATIN 20 MG TAB PO SCH (20:32)
[2019-01-30 22:29] LABS: CALCIUM LEVEL 9.3 MG/DL (8.8-10.2); CREATININE FOR GFR 4.01 MG/DL (0.70-1.30); GLOMERULAR FILTRATION RATE 15.4 (>35)
[2019-01-31] VITALS: BP 150/80
[2019-01-31] MEDS: ACETAMINOPHEN TAB 650MG DOSE (2X325MG) PO PRN (01:38)
[2019-01-31 04:00] VITALS: BP 181/86
[2019-01-31] MEDS: LEVOTHYROXINE 25MCG TABLET (0.025MG) PO SCH (05:16)
[2019-01-31] MEDS: HEPARIN SOD (PORCINE) 5000 UNITS/ML VIAL SC SCH ×3 (05:17→21:04)
[2019-01-31 05:55] LABS: HEMATOCRIT 37.3 % (42.0-52.0); HEMOGLOBIN 12.3 g/dl (13.5-17.5); MEAN CORPUSCULAR HEMOGLOBIN 30.8 pg (27.0-33.0); MEAN CORPUSCULAR VOLUME 93.5 fl (80.0-96.0); PLATELET COUNT, AUTOMATED 282 10^3/uL (150-450); RED BLOOD COUNT 3.99 10^6/uL (4.30-6.10); WHITE BLOOD COUNT 11.2 10^3/uL (4.0-10.0)
[2019-01-31 06:15] LABS: MAGNESIUM LEVEL 2.4 MG/DL (1.8-2.4); PHOSPHORUS LEVEL 4.1 MG/DL (2.5-4.9)
[2019-01-31] MEDS: ADVAIR HFA 230/21MCG INHALER INH SCH ×2 (07:30→20:13)
[2019-01-31] MEDS: TIOTROPIUM INHALER/CAPSULE (SPIRIVA) INH SCH (07:30)
[2019-01-31 08:00] VITALS: BP 180/86
[2019-01-31] MEDS: carBAMazepine XR 100 MG TAB PO SCH ×3 (09:42→21:04)
[2019-01-31] MEDS: ASPIRIN 81 MG ENTERIC TAB PO SCH (09:42)
[2019-01-31] MEDS: LACTULOSE 20 GM/30 ML SYRUP UD PO SCH ×2 (09:42→21:04)
[2019-01-31] MEDS: PRAMIPEXOLE 0.25 MG TAB PO SCH (09:42)
[2019-01-31] MEDS: VERAPAMIL 40 MG TAB PO SCH ×3 (09:42→21:11)
[2019-01-31] MEDS: CALCITRIOL 0.25 MCG CAP (S0169) PO SCH (09:43)
[2019-01-31] MEDS: POTASSIUM CHLORIDE 10 MEQ SR TABLET PO SCH (09:43)
[2019-01-31] MEDS: TORSEMIDE 100 MG TAB PO SCH ×2 (09:43→17:19)
[2019-01-31] MEDS: **hydrALAZINE** 50 MG TAB PO SCH ×3 (09:43→21:05)
[2019-01-31] MEDS: cloNIDine 0.2 MG TAB PO SCH ×2 (09:44→21:05)
[2019-01-31] MEDS: PANTOPRAZOLE 40MG TAB (PROTONIX) PO SCH (09:44)
[2019-01-31] MEDS: CALCIUM CARBONATE 500 MG CHEW U/D PO SCH (09:44)
[2019-01-31] MEDS: METOPROLOL SUCC *XL* 25MG TAB (TopROL *XL*) PO SCH (09:44)
[2019-01-31] MEDS: DOCUSATE SODIUM 100 MG CAP PO SCH (09:44)
[2019-01-31] MEDS: SPIRONOLACTONE 25 MG TAB PO SCH ×2 (09:44→21:04)
--- NOTE | 2019-01-31 11:32 | IPNPDOC ---
Subjective Date Seen The patient was seen on 01/31/19. Subjective Chief Complaint/HPI He c/o feeling very tired and weak. Less SOB Constitutional: Denies: Chills, Fever Pulmonary: Reports: Dyspnea (chronic at baseline) Cardiovascular: Denies: Chest Pain, Palpitations Gastrointestinal: Denies: Nausea, Vomiting, Abdominal Pain, Diarrhea, Cons tipation Objective Physical Examination General Exam: Positive: Alert, No Acute Distress Eye Exam: Positive: Other Eye Symptoms (Enucleated left eye) Chest Exam: Positive: Clear to auscultation, Diminished (diminished bases); Negative: Rhonchi, Wheezing Heart Exam: Positive: Rate Normal, Regular Rhythm, Normal S1, Normal S2, Murmurs (2/6 systolic murmur best heard at RUSB) Telemetry: Positive: PVCs Abdomen Exam: Positive: Normal bowel sounds, Soft, Other (obese, protuberant, ); Negative: Tenderness Extremity Exam: Negative: Edema Skin Exam: Negative: Breakdown Neuro Exam: Positive: Normal Speech Psych Exam: Positive: Mental status NL, Memory Intact, Oriented x 3 Assessment /Plan Problems (1) Acute CHF Status: Acute Response to Treatment: Improving Problem Text: 01/31 - Euvolemic on current dose of diuretics 01/30/19: Appears Euvolemic currently with current dose of Demadex 100 BID and Spironolactone 25 BID 01/29 - Appears Euvolemic currently with current dose of Demadex 100 BID and Spironolactone 25 BID Fluid restriction of 1800 ml ordered until seen by Nephro. Prior regimen at home: Torsemide 100 mg po bid, Spironolactone 25 mg po bid. (2) Uncontrolled hypertension Status: Acute Problem Text: 01/31 - BP remains elevated - Change Toprol to Bystolic which will offer better BP control and is more Beta-1 selective in this patient with COPD Will start 2.5 mg daily (renal dose) 01/30/19: today, improved BP Continue current regimen. Hydralazine titrated to 50 tid, in addition to other agents as listed. BP remains elevated despite multiple medications: Toprol XL 25 daily Catapres 0.2 BID Verapamil 120 TID Demadex 100 BID Aldactone 25 BID Norvasc 10 QHS (3) CKD (chronic kidney disease) stage 4, GFR 15-29 ml/min Status: Chronic Problem Specific Plan: Consult Specialist Problem Text: At baseline - per nephrology (4) Noncompliance with medication regimen Status: Acute Problem Text: recently opted not to take medications. PFS aware. Family involved in care. (5) Hypothyroid Status: Chronic Response to Treatment: Stable (6) BPH (benign prostatic hyperplasia) Status: Chronic Response to Treatment: Stable Problem Text: Huitron catheter in place for critical care monitoring. Monitor for urinary retention symptoms. (7) COPD (chronic obstructive pulmonary disease) Status: Chronic Response to Treatment: Stable Problem Text: wonder if copd is main contributor to his dyspnea at this point. Remains on Advair and Incruse (8) Chronic constipation Status: Chronic Problem Text: uses Lactulose bid (9) Depression Status: Chronic Problem Text: Depression issues have been present since his 2 years ago. Seem to be worsening lately related to frustration over chronic medical issues and physical limitation. Having to go to appointments frequently for adjustments in his diuretics has also need frustrating He was started on Mirtazipine by Dr. Ortiz earlier this month, but I am not certain he was taking this He declined counseling in office. Per patient and son, he stopped his meds prior to this admission because he just did not want to be alive any more. He has been restarted on Mirtazipine now and we will need to monitor his mood - discuss option of inpatient IMHU vs outpatient counseling (10) Hypokalemia Status: Resolved Problem Text: Resolved with po replacement - will cut down dose to prevent hyperkalemia in patient with CKD taking potassium sparing diuretic Plan/VTE VTE Prophylaxis Ordered?: Yes (SQ heparin) Plan Therapy: PT, OT, Speech Pt and Family Services: Home Care Diagnostics: Repeat Labs in AM, TTE Anticipated Discharge: Home With Services Advance Directives: DNR Disposition ARU consult pending VS, I&O, 24H, Fishbone Vital Signs/I&O Vital Signs Date Time Temp Pulse Resp B/P (MAP) Pulse Ox O2 Delivery O2 Flow Rate FiO2 01/31/19 09:42 81 180/86 01/31/19 08:00 98.1 22 98 Room Air I&O- Last 24 Hours up to 6 AM 01/31/19 06:00 Intake Total 1140 ml Output Total 500 ml Balance 640 ml Laboratory Data 24H LABS Laboratory Tests 2 01/30/19 14:03: Anion Gap 11, Glomerular Filtration Rate 15.6L, Calcium Level 10.1 01/30/19 21:58: Anion Gap 12, Glomerular Filtration Rate 15.4L, Calcium Level 9.3 01/31/19 05:41: Nucleated Red Blood Cells % (auto) 0.0, Phosphorus Level 4.1, Magnesium Level 2.4 CBC/BMP Laboratory Tests 01/30/19 14:03 01/30/19 21:58 01/31/19 05:41 Microbiology Microbiology 01/28/19 Urine Culture - Final, Complete 01/28/19 Blood Culture - Preliminary, Resulted No Growth after 72 hours. All specime... 01/27/19 Respiratory Virus Panel (PCR) ([facility]) - Final, Complete 01/27/19 Blood Culture - Preliminary, Resulted No Growth after 72 hours. All specime... JHONATHAN RAMOS PA-C Jan 31, 2019 11:31
[2019-01-31 12:00] VITALS: BP 166/84
[2019-01-31] MEDS: NEBIVOLOL 5 MG TAB (BYSTOLIC) PO SCH (12:25)
[2019-01-31] MEDS: SERTRALINE HCL 25 MG TABLET PO SCH (12:25)
[2019-01-31 16:00] VITALS: BP 165/79
[2019-01-31 20:00] VITALS: BP 158/80
[2019-01-31] MEDS: amLODIPine 10 MG TAB PO SCH (21:04)
[2019-01-31] MEDS: PRAVASTATIN 20 MG TAB PO SCH (21:05)
[2019-02-01] VITALS (9 sets, daily range): BP systolic 118–200; BP diastolic 60–100
[2019-02-01] MEDS: NORCO, ANEXSIA 5/325MG TABLET (HYDROcodone/ACETAMINOPHEN) PO PRN ×2 (03:23→21:50)
[2019-02-01] MEDS: HEPARIN SOD (PORCINE) 5000 UNITS/ML VIAL SC SCH ×3 (05:21→21:11)
[2019-02-01] MEDS: LEVOTHYROXINE 25MCG TABLET (0.025MG) PO SCH (05:21)
[2019-02-01 05:36] LABS: HEMATOCRIT 32.6 % (42.0-52.0); HEMOGLOBIN 10.7 g/dl (13.5-17.5); MEAN CORPUSCULAR HEMOGLOBIN 31.2 pg (27.0-33.0); MEAN CORPUSCULAR HGB CONC 32.8 g/dl (32.0-36.5); PLATELET COUNT, AUTOMATED 278 10^3/uL (150-450); RED BLOOD COUNT 3.43 10^6/uL (4.30-6.10); WHITE BLOOD COUNT 10.1 10^3/uL (4.0-10.0)
[2019-02-01 06:07] LABS: MAGNESIUM LEVEL 2.4 MG/DL (1.8-2.4); PHOSPHORUS LEVEL 4.6 MG/DL (2.5-4.9)
[2019-02-01] MEDS: CALCITRIOL 0.25 MCG CAP (S0169) PO SCH (08:10)
[2019-02-01] MEDS: POTASSIUM CHLORIDE 10 MEQ SR TABLET PO SCH (08:10)
[2019-02-01] MEDS: ASPIRIN 81 MG ENTERIC TAB PO SCH (08:10)
[2019-02-01] MEDS: SERTRALINE HCL 25 MG TABLET PO SCH (08:10)
[2019-02-01] MEDS: carBAMazepine XR 100 MG TAB PO SCH ×3 (08:10→20:27)
[2019-02-01] MEDS: VERAPAMIL 40 MG TAB PO SCH ×3 (08:11→20:26)
[2019-02-01] MEDS: SPIRONOLACTONE 25 MG TAB PO SCH ×2 (08:11→20:28)
[2019-02-01] MEDS: cloNIDine 0.2 MG TAB PO SCH ×2 (08:11→20:28)
[2019-02-01] MEDS: PRAMIPEXOLE 0.25 MG TAB PO SCH (08:11)
[2019-02-01] MEDS: **hydrALAZINE** 50 MG TAB PO SCH (08:11)
[2019-02-01] MEDS: PANTOPRAZOLE 40MG TAB (PROTONIX) PO SCH (08:11)
[2019-02-01] MEDS: DOCUSATE SODIUM 100 MG CAP PO SCH (08:12)
[2019-02-01] MEDS: ACETAMINOPHEN TAB 650MG DOSE (2X325MG) PO PRN ×3 (08:12→17:02)
[2019-02-01] MEDS: NEBIVOLOL 5 MG TAB (BYSTOLIC) PO SCH (08:12)
[2019-02-01] MEDS: CALCIUM CARBONATE 500 MG CHEW U/D PO SCH (08:13)
[2019-02-01] MEDS: TORSEMIDE 100 MG TAB PO SCH ×2 (08:13→16:54)
[2019-02-01] MEDS: LACTULOSE 20 GM/30 ML SYRUP UD PO SCH ×2 (08:13→20:28)
[2019-02-01] MEDS: TIOTROPIUM INHALER/CAPSULE (SPIRIVA) INH SCH (09:22)
[2019-02-01] MEDS: ADVAIR HFA 230/21MCG INHALER INH SCH ×2 (09:22→20:32)
--- NOTE | 2019-02-01 10:28 | IPNPDOC ---
Subjective Date Seen The patient was seen on 02/01/19. Subjective Chief Complaint/HPI Patient did not do well in PT yesterday - felt very weak, but states his strength improved later in the day and ambulated with staff. Still has some SOB with exertion, but at baseline Constitutional: Denies: Chills, Fever Pulmonary: Reports: Dyspnea (chronic); Denies: Cough Cardiovascular: Denies: Chest Pain, Palpitations Gastrointestinal: Denies: Nausea, Vomiting, Abdominal Pain, Diarrhea, Constipation Objective Physical Examination General Exam: Positive: Alert, No Acute Distress Eye Exam: Positive: Other Eye Symptoms Chest Exam: Positive: Clear to auscultation, Diminished Heart Exam: Positive: Rate Normal, Regular Rhythm, Normal S1, Normal S2, Murmurs Telemetry: Positive: PVCs Abdomen Exam: Positive: Normal bowel sounds, Soft, Other Extremity Exam: Negative: Edema Neuro Exam: Positive: Normal Speech Psych Exam: Positive: Mental status NL, Memory Intact, Oriented x 3 Assessment /Plan Problems (1) Acute CHF Status: Acute Response to Treatment: Improving Problem Text: 02/01 - Compensated on Demadex 100 BID and Spironolactone 25 BID 01/31 - Euvolemic on current dose of diuretics 01/30/19: Appears Euvolemic currently with current dose of Demadex 100 BID and Spironolactone 25 BID 01/29 - Appears Euvolemic currently with current dose of Demadex 100 BID and Spironolactone 25 BID Fluid restriction of 1800 ml ordered until seen by Nephro. Prior regimen at home: Torsemide 100 mg po bid, Spironolactone 25 mg po bid. (2) Uncontrolled hypertension Status: Acute Problem Text: 02/01 - Metoprolol switched to Bystolic starting this am - monitor BP trend Remains on : Catapres 0.2 BID Verapamil 120 TID Demadex 100 BID Aldactone 25 BID Norvasc 10 QHS Get Renal Artery doppler 01/31 - BP remains elevated - Change Toprol to Bystolic which will offer better BP control and is more Beta-1 selective in this patient with COPD Will start 2.5 mg daily (renal dose) 01/30/19: today, improved BP Continue current regimen. Hydralazine titrated to 50 tid, in addition to other agents as listed. BP remains elevated despite multiple medications: Toprol XL 25 daily Catapres 0.2 BID Verapamil 120 TID Demadex 100 BID Aldactone 25 BID Norvasc 10 QHS (3) CKD (chronic kidney disease) stage 4, GFR 15-29 ml/min Status: Chronic Problem Specific Plan: Consult Specialist Problem Text: 02/01 - No BMP last 2 days - check today At baseline - per nephrology 2 days ago (4) Noncompliance with medication regimen Status: Acute Problem Text: recently opted not to take medications. PFS aware. Family involved in care. (5) Hypothyroid Status: Chronic Response to Treatment: Stable (6) BPH (benign prostatic hyperplasia) Status: Chronic Response to Treatment: Stable Problem Text: Huitron catheter in place for critical care monitoring. Monitor for urinary retention symptoms. (7) COPD (chronic obstructive pulmonary disease) Status: Chronic Response to Treatment: Stable Problem Text: wonder if copd is main contributor to his dyspnea at this point. Remains on Advair and Incruse (8) Chronic constipation Status: Chronic Problem Text: uses Lactulose bid (9) Depression Status: Chronic Problem Text: Depression issues have been present since his 2 years ago. Seem to be worsening lately related to frustration over chronic medical issues and physical limitation. Having to go to appointments frequently for adjustments in his diuretics has also need frustrating He was started on Mirtazipine by Dr. Ortiz earlier this month, but I am not certain he was taking this He declined counseling in office. Per patient and son, he stopped his meds prior to this admission because he just did not want to be alive any more. 02/01 - Mirtazapine stopped - switched to Zoloft Appetite has been fine since admission but mood remains poor (10) Hypokalemia Status: Resolved Problem Text: Resolved with po replacement - will cut down dose to prevent hyperkalemia in patient with CKD taking potassium sparing diuretic Plan/VTE VTE Prophylaxis Ordered?: Yes (SQ heparin) Plan Therapy: PT, OT Advance Directives: DNR Disposition Awaiting ARU eval - D/C to ARU today if accepted vs SNF for Subacute rehab VS, I&O, 24H, Fishbone Vital Signs/I&O Vital Signs Date Time Temp Pulse Resp B/P (MAP) Pulse Ox O2 Delivery O2 Flow Rate FiO2 02/01/19 08:12 72 180/100 02/01/19 07:22 98.2 20 98 Room Air I&O- Last 24 Hours up to 6 AM 10/25/19 06:00 Intake Total 600 ml Output Total 0 ml Balance 600 ml Laboratory Data 24H LABS Laboratory Tests 2 02/01/19 05:09: Nucleated Red Blood Cells % (auto) 0.0, Phosphorus Level 4.6, Magnesium Level 2.4 CBC/BMP Laboratory Tests 02/01/19 05:09 Microbiology Microbiology 01/28/19 Urine Culture - Final, Complete 01/28/19 Blood Culture - Preliminary, Resulted No Growth after 72 hours. All specime... 01/27/19 Respiratory Virus Panel (PCR) ([facility]) - Final, Complete 01/27/19 Blood Culture - Preliminary, Resulted No Growth after 72 hours. All specime... JHONATHAN RAMOS PA-C Feb 01, 2019 10:28
[2019-02-01 12:01] LABS: CALCIUM LEVEL 9.6 MG/DL (8.8-10.2); CREATININE FOR GFR 4.24 MG/DL (0.70-1.30); GLOMERULAR FILTRATION RATE 14.4 (>35)
[2019-02-01] MEDS: **hydrALAZINE HCL** 25 MG TAB PO SCH ×2 (16:53→20:27)
[2019-02-01] MEDS: amLODIPine 10 MG TAB PO SCH (20:27)
[2019-02-01] MEDS: PRAVASTATIN 20 MG TAB PO SCH (20:27)
[2019-02-01] MEDS: NITROGLYCERIN 0.4 MG SUBL TABLET SL PRN (21:57)
[2019-02-01] MEDS ORDERED: ASPIRIN 81 MG CHEW TABLET PO ONE (22:30)
[2019-02-01] MEDS: MORPHINE 4 MG/ML 1ML VIAL/SYRINGE (J2270) IV PRN (22:30)
[2019-02-01] MEDS ORDERED: FUROSEMIDE 80 MG TAB PO ONE (23:15)
[2019-02-01] MEDS: ALPRAZolam 0.25 MG TAB PO PRN (23:15)
--- NOTE | 2019-02-01 23:34 | IPNPDOC ---
Subjective Date Seen The patient was seen on 02/01/19. Subjective Chief Complaint/HPI chest and abdominal pressure. no nausea. 08/17 initially. sleeping after 2mg IV MS Pulmonary: Reports: Dyspnea Cardiovascular: Reports: Chest Pain Gastrointestinal: Reports: Abdominal Pain (especially upper and RUQ); Denies: Nausea Neurological: Denies: Weakness Psych: Reports: Anxiety Objective Physical Examination General Exam: Positive: Alert, No Acute Distress Eye Exam: Positive: Other Eye Symptoms (s/p removal of left eye) Neck Exam: Positive: Other (pos HJR.) Chest Exam: Positive: Rales (faint bibasilar rales), Diminished Heart Exam: Positive: Rate Normal, Regular Rhythm, Normal S1, Normal S2, Murmurs Telemetry: Positive: PVCs Abdomen Exam: Positive: Normal bowel sounds, Soft, Tenderness (tender RUQ with hepatic congestion), Other Extremity Exam: Negative: Clubbing, Edema Neuro Exam: Positive: Normal Speech Psych Exam: Positive: Mental status NL, Anxiety, Memory Intact, Oriented x 3 Assessment /Plan Problems (1) Acute CHF Status: Acute Response to Treatment: Improving Problem Text: 2319: chest discomfort/ pressure. CXR shows increased interstitial marking, BNP up from earlier. Tender liver with compression and pos HJR, has been slightly positive every day since admission. ECG does not show acute ST-T changes. ST depression were more prominent earlier in admission. Nitropaste started and 120mg IV lasix ordered. Initital troponin negative, repe at in 5 hours ordered. 02/01 - Compensated on Demadex 100 BID and Spironolactone 25 BID 01/31 - Euvolemic on current dose of diuretics 01/30/19: Appears Euvolemic currently with current dose of Demadex 100 BID and Spironolactone 25 BID 01/29 - Appears Euvolemic currently with current dose of Demadex 100 BID and Spironolactone 25 BID Fluid restriction of 1800 ml ordered until seen by Nephro. Prior regimen at home: Torsemide 100 mg po bid, Spironolactone 25 mg po bid. (2) Uncontrolled hypertension Status: Acute Problem Text: 02/01 - Metoprolol switched to Bystolic starting this am - monitor BP trend Remains on : Catapres 0.2 BID Verapamil 120 TID Demadex 100 BID Aldactone 25 BID Norvasc 10 QHS Get Renal Artery doppler 01/31 - BP remains elevated - Change Toprol to Bystolic which will offer better BP control and is more Beta-1 selective in this patient with COPD Will start 2.5 mg daily (renal dose) 01/30/19: today, improved BP Continue current regimen. Hydralazine titrated to 50 tid, in addition to other agents as listed. BP remains elevated despite multiple medications: Toprol XL 25 daily Catapres 0.2 BID Verapamil 120 TID Demadex 100 BID Aldactone 25 BID Norvasc 10 QHS (3) CKD (chronic kidney disease) stage 4, GFR 15-29 ml/min Status: Chronic Problem Specific Plan: Consult Specialist Problem Text: 02/01 - No BMP last 2 days - check today At baseline - per nephrology 2 days ago (4) Noncompliance with medication regimen Status: Acute Problem Text: recently opted not to take medications. PFS aware. Family involved in care. (5) Hypothyroid Status: Chronic Response to Treatment: Stable (6) BPH (benign prostatic hyperplasia) Status: Chronic Response to Treatment: Stable Problem Text: Huitron catheter in place for critical care monitoring. Monitor for urinary retention symptoms. (7) COPD (chronic obstructive pulmonary disease) Status: Chronic Response to Treatment: Stable Problem Text: wonder if copd is main contributor to his dyspnea at this point. Remains on Advair and Incruse (8) Chronic constipation Status: Chronic Problem Text: uses Lactulose bid (9) Depression Status: Chronic Problem Text: Depression issues have been present since his 2 years ago. Seem to be worsening lately related to frustration over chronic medical issues and physical limitation. Having to go to appointments frequently for adjustments in his diuretics has also need frustrating He was started on Mirtazipine by Dr. Ortiz earlier this month, but I am not certain he was taking this He declined counseling in office. Per patient and son, he stopped his meds prior to this admission because he just did not want to be alive any more. 02/01 - Mirtazapine stopped - switched to Zoloft Appetite has been fine since admission but mood remains poor (10) Hypokalemia Status: Resolved Problem Text: Resolved with po replacement - will cut down dose to prevent hyperkalemia in patient with CKD taking potassium sparing diuretic Plan/VTE VTE Prophylaxis Ordered?: Yes (SQ heparin) Plan Therapy: PT, OT Advance Directives: DNR VS, I&O, 24H, Fishbone Vital Signs/I&O Vital Signs Date Time Temp Pulse Resp B/P (MAP) Pulse Ox O2 Delivery O2 Flow Rate FiO2 02/01/19 22:30 22 02/01/19 21:57 179/94 02/01/19 20:26 62 02/01/19 16:00 97.6 99 Room Air I&O- Last 24 Hours up to 6 AM 02/01/19 06:00 Intake Total 600 ml Output Total 0 ml Balance 600 ml Laboratory Data 24H LABS Laboratory Tests 2 02/01/19 05:09: Nucleated Red Blood Cells % (auto) 0.0, Phosphorus Level 4.6, Magnesium Level 2.4 02/01/19 11:13: Anion Gap 9, Glomerular Filtration Rate 14.4L, Calcium Level 9.6, DU-Sbk-[id number]-Type Natriuretic Peptide 3370H 02/01/19 22:28: Troponin I < 0.02 CBC/BMP Laboratory Tests 02/01/19 05:09 02/01/19 11:13 Microbiology Microbiology 01/28/19 Urine Culture - Final, Complete 01/28/19 Blood Culture - Preliminary, Resulted No Growth after 72 hours. All specime... 01/27/19 Respiratory Virus Panel (PCR) ([facility]) - Final, Complete 01/27/19 Blood Culture - Final, Complete NO GROWTH AFTER 5 DAYS Davie Lenz MD Feb 01, 2019 23:34
--- NOTE | 2019-02-01 23:44 | REPVR ---
PROCEDURE INFORMATION: Exam: XR Chest, 1 View Exam date and time: 02/01/2019 11:13 PM Clinical history: 83 years old, male; Other: Chest pain TECHNIQUE: Imaging protocol: XR of the chest Views: 1 view. COMPARISON: CR PORTABLE CHEST X-RAY 01/27/2019 8:26 PM FINDINGS: Lungs: Minimalbibasilar atelectasis. No consolidation. Pleural space: Unremarkable. No pleural effusion. No pneumothorax. Heart/Mediastinum: Unremarkable. No cardiomegaly. Bones/joints: Unremarkable. IMPRESSION: Minimalbibasilar atelectasis. No consolidation. Electronically signed by: Linda Rausch On 02/01/2019 23:43:58 PM
[2019-02-02] VITALS (7 sets, daily range): BP systolic 120–180; BP diastolic 58–98
[2019-02-02] MEDS ORDERED: NITROGLYCERIN 2% OINT 1 GM *U/D* PKT TOP SCH
[2019-02-02] MEDS: NITROGLYCERIN 2% OINT 1 GM *U/D* PKT TOP SCH ×4 (01:14→20:24)
[2019-02-02] MEDS: LEVOTHYROXINE 25MCG TABLET (0.025MG) PO SCH (05:04)
[2019-02-02] MEDS: HEPARIN SOD (PORCINE) 5000 UNITS/ML VIAL SC SCH ×3 (05:05→20:23)
[2019-02-02 05:36] LABS: HEMATOCRIT 35.2 % (42.0-52.0); HEMOGLOBIN 11.3 g/dl (13.5-17.5); MEAN CORPUSCULAR HEMOGLOBIN 30.7 pg (27.0-33.0); MEAN CORPUSCULAR HGB CONC 32.1 g/dl (32.0-36.5); MEAN CORPUSCULAR VOLUME 95.7 fl (80.0-96.0); PLATELET COUNT, AUTOMATED 247 10^3/uL (150-450); RED BLOOD COUNT 3.68 10^6/uL (4.30-6.10); WHITE BLOOD COUNT 9.6 10^3/uL (4.0-10.0)
[2019-02-02 05:59] LABS: BLOOD UREA NITROGEN 83 MG/DL (7-18); CALCIUM LEVEL 9.2 MG/DL (8.8-10.2); CARBON DIOXIDE LEVEL 20 MEQ/L (21-32); CHLORIDE LEVEL 105 MEQ/L (98-107); CK-MB VALUE MASS < 1.0 NG/ML (<3.6); CPK CREATINE PHOSPHOKINASE 36 U/L (39-308); CREATININE FOR GFR 4.64 MG/DL (0.70-1.30); GLUCOSE, FASTING 149 MG/DL (70-100); MB/CK RELATIVE INDEX 2.78 (< OR =4); POTASSIUM SERUM 4.6 MEQ/L (3.5-5.1); SODIUM LEVEL 136 MEQ/L (136-145); TROPONIN I < 0.02 NG/ML (< 0.10)
[2019-02-02] MEDS: NORCO, ANEXSIA 5/325MG TABLET (HYDROcodone/ACETAMINOPHEN) PO PRN ×2 (06:35→20:44)
[2019-02-02] MEDS: TIOTROPIUM INHALER/CAPSULE (SPIRIVA) INH SCH (08:47)
[2019-02-02] MEDS: ADVAIR HFA 230/21MCG INHALER INH SCH ×2 (08:48→20:00)
[2019-02-02] MEDS: LACTULOSE 20 GM/30 ML SYRUP UD PO SCH ×2 (09:00→20:22)
[2019-02-02] MEDS: DOCUSATE SODIUM 100 MG CAP PO SCH (09:00)
--- NOTE | 2019-02-02 10:08 | REP ---
RENAL ULTRASOUND WITH DUPLEX DOPPLER RENAL ARTERY EVALUATION: Real-time ultrasound evaluation of the kidneys is performed. There is slight left renal atrophy. Both kidneys are somewhat hyperechoic in echotexture suggesting medical renal disease. Right kidney measures 11.0 x 5.9 x 6.0 cm and left kidney 8.8 x 5.6 x 5.5 cm. There is no hydronephrosis bilaterally. There are multiple bilateral renal cysts present. The largest are measured. Largest on the right is in the upper pole 5.3 x 4.5 x 5.2 cm, and largest on the left is in the upper pole 7.7 x 4.6 x 7.0 cm. Urinary bladder is mildly distended with a volume of 251 mL. There are bilateral ureteral jets in the urinary bladder with Doppler color evaluation. Real-time ultrasound evaluation and duplex Doppler interrogation of the renal arteries is performed bilaterally. Peak systolic velocity of the abdominal aorta at the level of the renal arteries is 92.9 cm/s. Peak systolic velocity of the visualized main right renal artery is 67.4 cm/s, uwopi-mn-tlumpd ratio 0.73. Resistive indices are measured in the upper, middle, and lower thirds of the right kidney and range between 0.70 and 0.76. Acceleration times range between 0.022 and 0.037. Peak systolic velocity of the visualized main left renal artery is 161 cm/s, hpxax-wv-pgbpne ratio 1.7. Resistive indices left kidney range between 0.54 and 0.78. Acceleration times range between 0.037 and 0.044. Overlying bowel gas obscures the proximal renal arteries bilaterally. Study is also limited due to patient body habitus. There is blunting of intrarenal waveforms suggesting intrarenal vessel disease. IMPRESSION: Limited exam due to patient body habitus and bowel gas. Origins of the renal arteries could not be visualized. Otherwise, no compelling evidence for significant renal artery stenosis bilaterally. Bilateral renal cysts. Increased echotexture of the kidneys suggests medical renal disease. Electronically Signed by Wale Ruth MD 02/02/2019 04:51 P
[2019-02-02 10:09] LABS: CK-MB VALUE MASS 1.1 NG/ML (<3.6); CPK CREATINE PHOSPHOKINASE 38 U/L (39-308); MB/CK RELATIVE INDEX 2.89 (< OR =4); TROPONIN I < 0.02 NG/ML (< 0.10)
[2019-02-02] MEDS: VERAPAMIL 40 MG TAB PO SCH ×3 (10:31→20:22)
[2019-02-02] MEDS: SERTRALINE HCL 25 MG TABLET PO SCH (10:32)
[2019-02-02] MEDS: SPIRONOLACTONE 25 MG TAB PO SCH ×2 (10:32→20:24)
[2019-02-02] MEDS: POTASSIUM CHLORIDE 10 MEQ SR TABLET PO SCH (10:32)
[2019-02-02] MEDS: cloNIDine 0.2 MG TAB PO SCH ×2 (10:32→20:23)
[2019-02-02] MEDS: PANTOPRAZOLE 40MG TAB (PROTONIX) PO SCH (10:32)
[2019-02-02] MEDS: **hydrALAZINE HCL** 25 MG TAB PO SCH ×3 (10:32→20:23)
[2019-02-02] MEDS: carBAMazepine XR 100 MG TAB PO SCH ×3 (10:32→20:23)
[2019-02-02] MEDS: CALCIUM CARBONATE 500 MG CHEW U/D PO SCH (10:33)
[2019-02-02] MEDS: TORSEMIDE 100 MG TAB PO SCH ×2 (10:33→16:58)
[2019-02-02] MEDS: PRAMIPEXOLE 0.25 MG TAB PO SCH (10:33)
[2019-02-02] MEDS: ASPIRIN 81 MG ENTERIC TAB PO SCH (10:33)
[2019-02-02] MEDS: CALCITRIOL 0.25 MCG CAP (S0169) PO SCH (10:33)
[2019-02-02] MEDS: NEBIVOLOL 5 MG TAB (BYSTOLIC) PO SCH (10:33)
[2019-02-02] MEDS ORDERED: MAALOX 30 ML SUSP *UDC PO PRN (14:45)
--- NOTE | 2019-02-02 15:34 | IPN ---
DATE: 02/02/2019 Modified radical mastectomy Alicia Ruth is seen this morning on his bedside. He is sitting at the edge of bed, and his family is visiting. The patient continues to feel short of breath. He has been chronically short of breath due to decompensated congestive heart failure (CHF). He has been depressed, as his a couple of years ago, and he has been wishing to the join her. Now he has decided to go with hospice, as he does not want dialysis or any other aggressive measures. PHYSICAL EXAMINATION: Temperature 97.8 degrees Fahrenheit, heart rate 64 per minute, respiratory rate 22 per minute, blood pressure 182/84 mm of mercury, and oxygen saturation 98%. Head is atraumatic. There is no oral thrush or ulcers. Neck is supple and jugular venous distention (JVD) does not seem to be elevated while sitting upright. Lungs have slightly diminished breath sounds and basilar rales. Heart sounds are regular. There is no pericardial friction rub. Abdomen soft and nontender, and bowel sounds are normal. Extremities without any cyanosis or clubbing. Neurologically, he is awake, alert and oriented times three. Today's labs show WBC count 9.6, hemoglobin 11.3, and hematocrit 35.2. Sodium 136, potassium 4.6, CO2 of 20, BUN 83, and creatinine 4.64. Glucose is 149 and calcium 9.2. PROBLEMS: 1. Acute renal failure superimposed on chronic kidney disease. The patient seems to have almost end-stage renal disease. His GFR is 13 mL per minute today. He has been chronically volume overloaded and short of breath. The patient does not wish dialysis. 2. Congestive heart failure. His volume status seems slightly decompensated, but he is still quite short of breath. I feel that this is a combination of advanced renal failure and congestive heart failure. The patient does not wish any aggressive measures and particularly does not wish dialysis. He has already requested hospice consultation. 3. Hypertension. His blood pressure remains poorly controlled, which is also related to advanced renal failure and congestive heart failure. He is on multiple medications, including calcium channel blockers, diuretics, vasodilator, and centrally acting drugs. I would suggest to increase his clonidine dose or hydralazine dose as needed.
[2019-02-02] MEDS: amLODIPine 10 MG TAB PO SCH (20:23)
[2019-02-02] MEDS: PRAVASTATIN 20 MG TAB PO SCH (20:23)
[2019-02-03] VITALS: BP 146/71
[2019-02-03 03:17] VITALS: BP 152/82
[2019-02-03] MEDS: NITROGLYCERIN 2% OINT 1 GM *U/D* PKT TOP SCH (03:17)
[2019-02-03 04:00] VITALS: BP 148/88
[2019-02-03] MEDS: HEPARIN SOD (PORCINE) 5000 UNITS/ML VIAL SC SCH ×2 (05:20→14:00)
[2019-02-03] MEDS: LEVOTHYROXINE 25MCG TABLET (0.025MG) PO SCH (05:20)
[2019-02-03 05:31] LABS: HEMATOCRIT 34.4 % (42.0-52.0); HEMOGLOBIN 11.3 g/dl (13.5-17.5); MEAN CORPUSCULAR HEMOGLOBIN 31.6 pg (27.0-33.0); MEAN CORPUSCULAR HGB CONC 32.8 g/dl (32.0-36.5); MEAN CORPUSCULAR VOLUME 96.1 fl (80.0-96.0); PLATELET COUNT, AUTOMATED 281 10^3/uL (150-450); RED BLOOD COUNT 3.58 10^6/uL (4.30-6.10); WHITE BLOOD COUNT 12.9 10^3/uL (4.0-10.0)
[2019-02-03 06:08] LABS: CALCIUM LEVEL 9.6 MG/DL (8.8-10.2); CREATININE FOR GFR 5.64 MG/DL (0.70-1.30); GLOMERULAR FILTRATION RATE 10.4 (>35); POTASSIUM SERUM 5.8 MEQ/L (3.5-5.1)
[2019-02-03] MEDS: TIOTROPIUM INHALER/CAPSULE (SPIRIVA) INH SCH (07:14)
[2019-02-03] MEDS: ADVAIR HFA 230/21MCG INHALER INH SCH ×2 (07:14→19:46)
[2019-02-03 08:00] VITALS: BP 190/98
[2019-02-03] MEDS: DOCUSATE SODIUM 100 MG CAP PO SCH (09:00)
[2019-02-03] MEDS: LACTULOSE 20 GM/30 ML SYRUP UD PO SCH ×2 (09:00→21:00)
[2019-02-03] MEDS: CALCIUM CARBONATE 500 MG CHEW U/D PO SCH (09:00)
[2019-02-03] MEDS ORDERED: TORSEMIDE 100 MG TAB PO SCH (09:00)
[2019-02-03] MEDS: NORCO, ANEXSIA 5/325MG TABLET (HYDROcodone/ACETAMINOPHEN) PO PRN ×2 (09:01→20:45)
[2019-02-03] MEDS ORDERED: FLEET ENEMA PR PRN (12:00)
[2019-02-03] MEDS ORDERED: MORPHINE SULFATE ORAL SOLN 10 MG/5 ML UD SL PRN (12:00)
[2019-02-03] MEDS ORDERED: HYOSCYAMINE SULFATE 0.125 MG SUBL TABLET PO PRN (12:00)
--- NOTE | 2019-02-03 14:30 | IPN ---
DATE: 02/03/2019 Bradford was seen in progressive care unit (PCU), was quite weepy. He came in after stopping his medications. Congestive heart failure superimposed on stage IV-V chronic kidney disease. I saw him on PCU on 02/02/2019. He indicated he wanted to engage hospice and end of life care. PHYSICAL EXAMINATION: He had some jugular venous distention (JVD). His lungs have rales. HEART: Regular rate and rhythm. ABDOMEN: Soft, nontender. Trace peripheral edema. IMPRESSION: End-stage renal disease with acute congestive heart failure (CHF) secondary to stopping his medications. PLAN: Patient just wants to enroll in hospice and he knows he has reached end of life. His and he misses her and no longer wants to continue living. He is not depressed such that he needs a psychiatrist because his responses are appropriate for his situation. Will have him think this over and tomorrow we will discuss hospice further.
--- NOTE | 2019-02-03 14:33 | IPN ---
DATE: 02/03/2019 A return visit with Bradford. He had family members there, his grandson and granddaughter and had a good discussion. He wants to be put on COMFORT MEASURES. He wants to go to the hospice house. We made out a new medical orders for life-sustaining treatment (MOLST) form with comfort measures only (DENTAL MANAGER) status. We will consult hospice, transfer patient to the floor. He says he "Is ready," and actually does not want to go home before going to hospice house, as he does not want to see the house the way it is. He wants to remember it the way it was when he was living there with his . We will see if hospice can accommodate this. Hospice consultation tomorrow. DENTAL MANAGER order was put in for today.
[2019-02-04] MEDS: MORPHINE 4 MG/ML 1ML VIAL/SYRINGE (J2270) IV PRN (05:12)
[2019-02-04] MEDS: TIOTROPIUM INHALER/CAPSULE (SPIRIVA) INH SCH (07:14)
[2019-02-04] MEDS: ADVAIR HFA 230/21MCG INHALER INH SCH ×2 (07:15→19:21)
[2019-02-04] MEDS: LACTULOSE 20 GM/30 ML SYRUP UD PO SCH ×2 (07:43→21:00)
[2019-02-04] MEDS: CALCIUM CARBONATE 500 MG CHEW U/D PO SCH (07:43)
[2019-02-04] MEDS: DOCUSATE SODIUM 100 MG CAP PO SCH (07:43)
[2019-02-04] MEDS: NORCO, ANEXSIA 5/325MG TABLET (HYDROcodone/ACETAMINOPHEN) PO PRN ×3 (07:44→20:25)
[2019-02-04] MEDS: LORazepam 1 MG TAB PO PRN ×3 (07:44→22:38)
--- NOTE | 2019-02-04 10:32 | IPNPDOC ---
Subjective Date Seen The patient was seen on 02/04/19. Subjective Chief Complaint/HPI CHF Events since last encounter patient placed on FITNESS COACH status yesterday. Awaiting hospice consult. Patient requesting to resume tegretol. This helps with tremors. His tremors are severe enough to interefere with eating and drinking. Objective Physical Examination General Exam: Positive: Alert, No Acute Distress Eye Exam: Positive: Other Eye Symptoms (s/p removal of left eye) Neck Exam: Positive: Other (pos HJR.) Chest Exam: Positive: Rales (faint bibasilar rales), Diminished Heart Exam: Positive: Rate Normal, Regular Rhythm, Normal S1, Normal S2, Murmurs Telemetry: Positive: PVCs Abdomen Exam: Positive: Normal bowel sounds, Soft, Tenderness (tender RUQ with hepatic congestion), Other Extremity Exam: Negative: Clubbing, Edema Neuro Exam: Positive: Normal Speech Psych Exam: Positive: Mental status NL, Anxiety, Memory Intact, Oriented x 3 Assessment /Plan Problems (1) Comfort measures only status Problem Text: Hospice consult pending. Patient requesting hospice house. Will resume tegretol due to severe tremors. (2) Acute CHF Status: Acute Response to Treatment: Improving Problem Text: 2319: chest discomfort/ pressure. CXR shows increased interstitial marking, BNP up from earlier. Tender liver with compression and pos HJR, has been slightly positive every day since admission. ECG does not show acute ST-T changes. ST depression were more prominent earlier in admission. Nitropaste started and 120mg IV lasix ordered. Initital troponin negative, repe at in 5 hours ordered. 02/01 - Compensated on Demadex 100 BID and Spironolactone 25 BID 01/31 - Euvolemic on current dose of diuretics 01/30/19: Appears Euvolemic currently with current dose of Demadex 100 BID and Spironolactone 25 BID 01/29 - Appears Euvolemic currently with current dose of Demadex 100 BID and Spironolactone 25 BID Fluid restriction of 1800 ml ordered until seen by Nephro. Prior regimen at home: Torsemide 100 mg po bid, Spironolactone 25 mg po bid. (3) Uncontrolled hypertension Status: Acute Problem Text: 02/01 - Metoprolol switched to Bystolic starting this am - monitor BP trend Remains on : Catapres 0.2 BID Verapamil 120 TID Demadex 100 BID Aldactone 25 BID Norvasc 10 QHS Get Renal Artery doppler 01/31 - BP remains elevated - Change Toprol to Bystolic which will offer better BP control and is more Beta-1 selective in this patient with COPD Will start 2.5 mg daily (renal dose) 01/30/19: today, improved BP Continue current regimen. Hydralazine titrated to 50 tid, in addition to other agents as listed. BP remains elevated despite multiple medications: Toprol XL 25 daily Catapres 0.2 BID Verapamil 120 TID Demadex 100 BID Aldactone 25 BID Norvasc 10 QHS (4) CKD (chronic kidney disease) stage 4, GFR 15-29 ml/min Status: Chronic Problem Specific Plan: Consult Specialist Problem Text: 02/01 - No BMP last 2 days - check today At baseline - per nephrology 2 days ago (5) Noncompliance with medication regimen Status: Acute Problem Text: recently opted not to take medications. PFS aware. Family involved in care. (6) Hypothyroid Status: Chronic Response to Treatment: Stable (7) BPH (benign prostatic hyperplasia) Status: Chronic Response to Treatment: Stable Problem Text: Huitron catheter in place for critical care monitoring. Monitor for urinary retention symptoms. (8) COPD (chronic obstructive pulmonary disease) Status: Chronic Response to Treatment: Stable Problem Text: wonder if copd is main contributor to his dyspnea at this point. Remains on Advair and Incruse (9) Chronic constipation Status: Chronic Problem Text: uses Lactulose bid (10) Depression Status: Chronic Problem Text: Depression issues have been present since his 2 years ago. Seem to be worsening lately related to frustration over chronic medical issues and physical limitation. Having to go to appointments frequently for adjustments in his diuretics has also need frustrating He was started on Mirtazipine by Dr. Ortiz earlier this month, but I am not certain he was taking this He declined counseling in office. Per patient and son, he stopped his meds prior to this admission because he just did not want to be alive any more. 02/01 - Mirtazapine stopped - switched to Zoloft Appetite has been fine since admission but mood remains poor (11) Hypokalemia Status: Resolved Problem Text: Resolved with po replacement - will cut down dose to prevent hyperkalemia in patient with CKD taking potassium sparing diuretic Plan/VTE VTE Prophylaxis Ordered?: Yes (SQ heparin) Plan Therapy: PT, OT Advance Directives: DNR VS, I&O, 24H, Fishbone Vital Signs/I&O Vital Signs Date Time Temp Pulse Resp B/P (MAP) Pulse Ox O2 Delivery O2 Flow Rate FiO2 02/04/19 08:14 18 02/04/19 07:44 Room Air 02/03/19 08:00 98.1 74 190/98 (128) 93 02/02/19 07:05 4.0 I&O- Last 24 Hours up to 6 AM 02/04/19 06:00 Intake Total 720 ml Balance 720 ml Laboratory Data Microbiology Microbiology 01/28/19 Urine Culture - Final, Complete 01/28/19 Blood Culture - Final, Complete NO GROWTH AFTER 5 DAYS 01/27/19 Respiratory Virus Panel (PCR) ([facility]) - Final, Complete 01/27/19 Blood Culture - Final, Complete NO GROWTH AFTER 5 DAYS Jada Hopson TOOL AND DIE MAKER/DESIGNER Feb 04, 2019 10:32
[2019-02-04] MEDS: carBAMazepine XR 200 MG TAB PO SCH ×2 (11:26→20:24)
--- NOTE | 2019-02-04 14:57 | ECGEPIP ---
[facility] Test Date: 2019-02-01 Pat Name: GIOVANNI LEIJA Department: Room: [place] [address] Gender: Male Editorial Specialist: SS : [id number] Requested By: Anthony Combs Order Number: [id number] Reading MD: Jared Dalton Measurements Intervals [place] Rate: 55 P: [place]: 0 QRS: -18 QRSD: 102 T: 50 QT: 446 QTc: 427 Interpretive Statements Ectopic atrial bradycardia Increased R/S ratio in V1 & V2 Left axis deviation Nonspecific ST abnormalities. Decreased heart rate and change in P wave morphology compared with 01/28/2019 at 1802 hrs. Electronically Signed on 02-04-2019 14:57:10 EDT by Jared Dalton
[2019-02-05] MEDS: ALPRAZolam 0.25 MG TAB PO PRN (01:23)
[2019-02-05] MEDS: ACETAMINOPHEN TAB 650MG DOSE (2X325MG) PO PRN (01:23)
[2019-02-05] MEDS: LORazepam 1 MG TAB PO PRN ×2 (04:29→08:04)
[2019-02-05] MEDS: TIOTROPIUM INHALER/CAPSULE (SPIRIVA) INH SCH (07:12)
[2019-02-05] MEDS: ADVAIR HFA 230/21MCG INHALER INH SCH (07:12)
[2019-02-05] MEDS ORDERED: HYOS125TA PO (07:39)
[2019-02-05] MEDS ORDERED: MORP20SO3 PO (07:39)
[2019-02-05] MEDS ORDERED: CARB20TAXR PO (07:39)
[2019-02-05] MEDS ORDERED: ATIV1TAB7 PO (07:39)
[2019-02-05] MEDS ORDERED: HYDR-4571 PO (07:39)
[2019-02-05] MEDS: DOCUSATE SODIUM 100 MG CAP PO SCH (08:04)
[2019-02-05] MEDS: carBAMazepine XR 200 MG TAB PO SCH (08:04)
[2019-02-05] MEDS: NORCO, ANEXSIA 5/325MG TABLET (HYDROcodone/ACETAMINOPHEN) PO PRN (08:04)
[2019-02-05] MEDS: CALCIUM CARBONATE 500 MG CHEW U/D PO SCH (08:05)
[2019-02-05] MEDS: LACTULOSE 20 GM/30 ML SYRUP UD PO SCH (08:05)
--- NOTE | 2019-02-05 09:07 | DSES ---
DATE OF ADMISSION: 01/27/2019 DATE OF DISCHARGE: ATTENDING PHYSICIAN: Peter Ortiz MD PRIMARY CARE PHYSICIAN: Peter Ortiz MD HISTORY OF PRESENT ILLNESS: This is an 83-year-old gentleman with a longstanding history of diastolic congestive heart failure, hypertension, chronic kidney disease (CKD) stage IV, obstructive sleep apnea (PHANI), obesity, epilepsy, diabetes, hyperlipidemia, benign prostatic hypertrophy (BPH), obstructive sleep apnea (PHANI), and chronic obstructive pulmonary disease (COPD), who presented to the emergency department (ED) with worsening shortness of breath and difficulty ambulating with profound dyspnea. The patient had stopped taking his medication secondary to some significant depression. This occurred after his 2 years ago. He has been expressing some significant frustration with his health since the of his . The patient was subsequently admitted and started on a diuresis program. HOSPITAL COURSE: The patient is status post nephrology consult secondary to his chronic kidney disease and worsening renal function. Dr. Gurinder Miller provided consultation on the patient. Please see consultation for further information. The patient continued to diurese well. On 02/02/2019, the patient was evaluated by Dr. Miller, which advised were continuing renal failure, and the patient declined dialysis or further aggressive measures. A consultation was held with Dr. Combs, and the patient opted for comfort measures only (COOPERATIVE EDUCATION DIRECTOR) and Hospice. The patient is status post hospice consult as of yesterday, and he is planning on transitioning to the Hospice house today. On physical examination, the patient is comfortable. He is resting without difficulty. Medications for pain and anxiety have been effective. DISCHARGE DIAGNOSES: 1. End-stage renal disease. 2. Diastolic congestive heart failure. 3. Hypertension. 4. Chronic obstructive pulmonary disease. 5. Depression. 6. Benign prostatic hypertrophy (BPH). 7. Hypothyroidism. PLAN: The patient will be discharged to Hospice home. Medications are as follows: Carbamazepine extended release 200 mg by mouth twice a day. This helps with the patient's tremors. Hydrocodone with acetaminophen one tablet by mouth every 6 hours as needed for pain. Hyoscyamine sulfate 0.125 mg sublingual every 4 hours as needed for terminal secretions. Lorazepam 1 mg tablet, a half tablet by mouth every 4 hours as needed for anxiety. Morphine sulfate 100 mg/5 mL 0.25 to 1 mL every 2 hours as needed for pain or dyspnea. The patient is discharged in stable condition at this time.
== END 2019-02-05 10:40 | disposition hospice, inpatient (51) | DRG 291 ==
LOC: EDBD 18:56 → M ED 18:56 → M ED INP 21:48 → M PCU 01-28 04:22 → M MS5PR 02-03 12:36
PROVIDERS: ADMIT Internal Medicine; ATTEND Family Medicine
DX: I13.2 Hypertensive heart and chronic kidney disease with heart failure and with stage 5 chronic kidney disease, or end stage renal disease (principal); I50.33 Acute on chronic diastolic (congestive) heart failure; N18.6 End stage renal disease; N17.9 Acute kidney failure, unspecified; N25.81 Secondary hyperparathyroidism of renal origin; J44.9 Chronic obstructive pulmonary disease, unspecified; I16.0 Hypertensive urgency; F32.9 Major depressive disorder, single episode, unspecified; E78.5 Hyperlipidemia, unspecified; N40.0 Benign prostatic hyperplasia without lower urinary tract symptoms; E66.9 Obesity, unspecified; Z51.5 Encounter for palliative care; Z66 Do not resuscitate; G47.33 Obstructive sleep apnea (adult) (pediatric); E87.6 Hypokalemia; I25.10 Atherosclerotic heart disease of native coronary artery without angina pectoris; G40.909 Epilepsy, unspecified, not intractable, without status epilepticus; K59.09 Other constipation; E03.9 Hypothyroidism, unspecified; Z79.82 Long term (current) use of aspirin; Z79.899 Other long term (current) drug therapy; Z91.040 Latex allergy status; Z91.14 Patient's other noncompliance with medication regimen; Z87.891 Personal history of nicotine dependence; Z68.29 Body mass index [BMI] 29.0-29.9, adult